=== PATIENT | female | born 2005 | race Caucasian/White ===

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

== ENCOUNTER 2024-08-14 16:30 | Outpatient (REF) | payer SELFPAY ==
[2024-08-14 17:27] LABS: Internal QC Validated? YES +Cl - CLEAR BKGD; Pregnancy, Serum, hCG Quali. NEGATIVE Negative; Record Kit Lot#, Serum Preg. 947241
== END 2024-08-14 17:30 | disposition home or self-care (01) ==
LOC: EDREF 16:30
PROVIDERS: Obstetrics & Gynecology
DX: Z04.41 Encounter for examination and observation following alleged adult rape (principal)
CPT/HCPCS: 84703

== ENCOUNTER 2025-01-27 22:51 | Emergency (ER) | payer MEDICAID, SELFPAY ==
[2025-01-27 22:51] VITALS: BP 129/90; PULSE 100; RESP 18; TEMP 36.6; O2SAT 99; BMI 21.7
--- NOTE | 2025-01-27 23:05 | ED.VIS.GI ---
HPI HPI - GI History of Present Illness Chief Complaint: Abd Pain Detail of Chief Complaint: Abdominal pain Informant: patient Narrative Narrative: Patient presents with 3-day history of abdominal pain. She is relatively continuous and left-sided. She describes a burning sensation. Feels like its mostly lower abdomen. She has had some intermittent dysuria. She has history of PCOS but this feels different than ovary pain. Denies fever. Denies blood in her stool or black tarry stool. Seen a few weeks ago in [facility] and diagnosed with a left ovarian cyst that was ruptured. Last menstrual period was 6 days ago on 01-21. No prior abdominal surgeries. Patient denies fevers. [facility] Medical History (Updated 01/28/25 @ 01:[address] Beck Fuller, DO) Physical exam, pre-employment PCOS (polycystic ovarian syndrome) Home Medications ?Medication ?Instructions ?Recorded ?Last Taken ?Type drospirenone 3 mg-ethinyl 1 tab PO QDAY 10/11/24 Unknown History estradiol 0.02 mg tablet sertraline 50 mg tablet 50 mg PO QDAY 01/27/25 Unknown History dicyclomine 10 mg capsule 20 mg (2 x 10 mg) PO TIDAC #20 01/28/25 Unknown Rx CAPSULES Allergy/AdvReac Type Severity Reaction Status Date / Time No Known Allergies Allergy Verified 01/27/25 22:52 Surgical History no surgical history Social History (Updated 10/11/24 @ 11:08 by Estefany Stewart) adopted: Yes Smoking Status: Never smoker Electronic Cigarette Use: with nicotine alcohol intake: current alcohol intake frequency: a few times a month substance use type: does not use ROS ROS ED Review of Systems ROS Unobtainable: other Constitutional Constitutional ED: Reports lethargy; Denies chills, fever(s), sweats or weight loss Eyes Eyes: Denies blurry vision, change in vision or diplopia ENT ENT ED: Denies rhinorrhea or sore throat Cardiovascular Cardiovascular: Denies chest pain, orthopnea or racing heartbeat Respiratory/Chest Respiratory/Chest: Denies cough, dyspnea, dyspnea on exertion, orthopnea or sputum Gastrointestinal Gastrointestinal: Reports abdominal pain; Denies diarrhea, nausea or vomiting Genitourinary Genitourinary ED: Denies dysuria, hematuria or urinary frequency Musculoskeletal Musculoskeletal: Denies arthralgias, back pain, myalgias or neck pain Integumentary Denies abscess, Abrasions or rash Neurologic Neurologic: Denies headache(s) or weakness Psychiatric Psychiatric: Denies anxiety, depression or suicidal thoughts Endocrine Endocrinology: Denies polydipsia, polyphagia or polyuria Hematologic/Lymphatic Hematologic/Lymphatic: Denies easy bleeding, easy bruising or lymphadenopathy Allergic/Immunologic Allergic/Immunologic ED: Denies mouth swelling, tongue swelling or urticaria EXAM Physical Exam Const Vital Signs: 01/27/25 22:51 Temperature 97.8 F Temperature Source Oral Pulse Rate 100 Respiratory Rate 18 Blood Pressure 129/90 H Blood Pressure Mean 103 Pulse Ox 99 Oxygen Delivery Method Room Air Positive well nourished and well developed General Appearance ED: well developed and NAD HEENT Reports TM's clear and moist mucous membranes normocephalic and atraumatic; Negative for trauma or tenderness Tympanic Membrane ED: Yes TM's clear Eyes PERRL and EOMs intact bilaterally General Eye ED: Negative for pale conjunctiva or scleral icterus Neck no lymphadenopathy, supple and no JVD General: Negative for tenderness Chest Wall inspection of chest normal and palpation of chest normal Chest: Negative for tenderness Resp normal respiratory effort and clear to auscultation bilaterally Effort and Inspection: Negative for respiratory distress or pain with movement Auscultation: Negative for rhonchi, wheezes or diminished lung sounds Cardio regular rate, regular rhythm, S1 normal heart sound, S2 normal heart sound and no murmurs Peripheral Pulses: pulses 2+ throughout GI normal to inspection, nondistended, normoactive bowel sounds, soft to palpation, non-distended and no masses GI Narrative: Tenderness palpation over the left upper quadrant as well as left lower quadrant with some guarding. There is no rebound, rigidity, or peritoneal signs. No mass palpated. Back/Spine no CVA tenderness and no thoracic nor lumbar tenderness Extremity normal to inspection General Extremety ED: Negative for edema General Extremity: Negative for edema Neuro oriented x3, CN's II-XII intact bilaterally, no sensory deficits noted and gait normal Sensorium / Orientation: awake, alert, oriented to person, oriented to place and oriented to time Motor Exam: strength 5/5 throughout and strength abnormal Psych mental status grossly normal Skin no rashes or lesions noted and no wounds MDM MDM MDM Narrative Medical decision making narrative: Patient presents with left-sided abdominal pain for the last 3 days. Patient history of PCOS. She has had intermittent episodes of dysuria as well. IV line established. CBC with differential obtained showed white count 12.0 with hemoglobin 14 and platelet count of 425. Chemistries unremarkable. LFTs were normal. Lipase normal. hCG was negative. Urinalysis without signs of infection. CT scan of the abdomen pelvis showed large amount of stool throughout the colon and no other acute abdominal process. Patient states that she has been having bowel movements and she had 1 yesterday that was small. Recommended MiraLAX [id number]. Will also write for Bentyl as needed for cramping. Advised return if worsening pain, fever, vomiting, or condition worsen anyway. Lab Data Attestation: I reviewed the patient's lab results. Labs: Laboratory Results - last 24 hr 01/27/25 01/27/25 23:15 23:25 WBC 12.0 H RBC 4.48 Hgb 14.1 Hct 40.7 MCV 90.8 MCH 31.5 MCHC 34.6 RDW Std Deviation 40.7 RDW Coeff of Lakesha 12.4 Plt Count 425 MPV 9.5 Immature Gran % (Auto) 0.500 Neut % (Auto) 72.8 H Lymph % (Auto) 18.5 L Webb % (Auto) 7.0 Eos % (Auto) 0.5 Baso % (Auto) 0.7 Absolute Neuts (auto) 8.8 H Absolute Lymphs (auto) 2.23 Nucleated RBC % 0 Sodium 137 Potassium 3.7 Chloride 102 Carbon Dioxide 23.3 Anion Gap 12 BUN 13 Creatinine 0.83 Estim Creat Clear Calc 85.51 Est GFR (MDRD) Non-Af 104 BUN/Creatinine Ratio 15.2 Glucose 97 Lactic Acid < 1.0 Calcium 9.0 Total Bilirubin 0.31 AST 18 ALT < 5 Alkaline Phosphatase 64 Total Protein 6.9 Albumin 4.2 Globulin 2.8 Albumin/Globulin Ratio 1.5 Lipase 42 Serum , Qual NEGATIVE Urine Color Yellow Urine Clarity Clear Urine pH 6.0 Ur Specific [place] 1.015 Urine Protein 30 H Urine Glucose (UA) Normal Urine Ketones 5 H Urine Occult Blood 10 H Urine Nitrite Negative Urine Bilirubin Negative Urine Urobilinogen Normal Ur Leukocyte Esterase 25 H Urine RBC 0-5 SEEN Urine WBC 0-5 SEEN Ur Squamous Epith Cells 0-5 SEEN Urine Bacteria 0 SEEN Urine Mucus 0 SEEN Radiography Diagnostic Testing: Clinical Impression(s) from Imaging Studies Abdomen/Pelvis CT 01/28/25 00:00 IMPRESSION: Large amount of stool throughout the colon. No other acute abdominal or pelvic process is identified on this limited noncontrast study. Reading Location: [facility] Discharge Plan Triage Chief Complaint: Abd Pain ED Provider: Beck Fuller Dx/Rx/DC Orders Clinical Impression: Abdominal pain, Constipation Instructions: ED Abdominal Pain Unkn Cause Fem, ED Constipation (Adult) Prescriptions: New dicyclomine 10 mg capsule 20 mg PO TIDAC Qty: 20 0RF No Action drospirenone-ethinyl estradiol 3-0.02 mg tablet 1 tab PO QDAY sertraline 50 mg tablet 50 mg PO QDAY Primary Care Provider: Care Physician,No Primary Referrals: Care Physician,No Primary [Primary Care Provider, Medical] Activity Restrictions/Additional Instructions: You may try [id number] MiraLAX daily for the next 2 weeks. Print Language: Malay Disposition Disposition: Home, Self Care
--- OUTSIDE RECORDS SUMMARY | 2025-01-27 23:19 | XMS RPT_ITS | CCD ---
Author Organization [facility] Inform ion Partnership [facility] Care Team Providers Care Log Deckman Name Role Phone REFERRED, SELF Referring Unavailable MIRELLA PISANO Attending Unavailable MIRELLA PISANO Primary Care Unavailable Unavailable Primary Care Provider Unavailvero e Pcp, No Primary Care Provider RONA Hernandez Attending Provider Unavailable Primary Care Provider UnavailGULSHAN Weems Attending Unavailable CRISTINA, MIRELLA Referring Unavailable MIRELLA EVANS Attending Unavailable CRISTINA, MIRELLA Referring Unavailable MIRELLA EVANS Attending Unavailable Taylor Garg Attending Unavailable Nurse, SANMoriah Primary Care Unavailable Taylor Garg Attending Unavailable Nurse, SANMoriah Primary Care Unavailable Nurse, SANE Primary Care Unavailable Nurse, SANMoriah Attending Unavailable BLANCA MARTINES Primary Care Unavailable ELIGIO HOWARD Attending Unavailable GULSHAN RODGERS Attending UnavailGULSHAN Whatley Referring UnavailBLANCA Vance MD Primary Care Provider ELIGIO HOWARD MD Emergency Provider [phone] Medications Current Medications Medication Drug Class(es) Dates Sig (Normalized) Sig (Original) drospirenone / Ethinyl Estradiol (5 sources) Progestin, Estrogen Start: 07-26-2024 take 1 tablet by mouth once daily Drospirenone-Ethin yl Estradiol (CRISTELA, ,) 3-0.02 mg per tablet Indications: PCOS (polycystic ovarian syndrome) Take 1 tablet by mouth once daily. 84 tablet 3 07/26/2024 Active Etonogestrel (Nexplanon) 68 mg implant (1 source) Start: 09-11-2022 Etonogestrel (Nexplanon) 68 mg implant Active 1 IMPLANT subdermal ONCE Lela 14th, 2023 12:00am as a single dose oseltamivir 75 mg oral capsule (1 source) Neuraminidase Inhibitor Start: 03-29-2024 End: 04-03-2024 take 1 capsule by mouth twice daily oseltamivir (TAMIFLU) 75 mg capsule Take 1 capsule by mouth two times a day for 5 days. 10 capsule 03/29/2024 04/03/2024 Active prazosin 1 mg oral capsule (1 source) alpha-Adrenergic Jacquelin Start: 09-14-2021 take 1 capsule by mouth once daily at bedtime prazosin 1 mg capsule (Minipress) Take 1 capsule by mouth every night at bedtime. 30 capsule 0 09/14/2021 Active sertraline 50 mg oral tablet (15 sources) Serotonin Reuptake Inhibitor Start: 09-14-2021 End: 03-12-2024 take 1 tablet by mouth once daily sertraline 50 mg tablet (Zoloft) Take 1 tablet by mouth once daily for 30 doses. 30 tablet 0 09/14/2021 Active End: 03-12-2024 sertraline (ZOLOFT) 25 mg ta blet Take 25 mg by mouth once daily. Take with 50mg to make 75mg 03/12/2024 Discontinued Comment on above: Take 25 mg by mouth once daily. Take with 50mg to make 75mg Take 50 mg by mouth once daily. Take with 25mg to make 75mg. Completed/Discontinued Medications Medication Drug Class(es) Dates Sig (Normalized) Sig (Original) benzonatate 100 mg oral capsule (1 source) Non-narcotic Antitussive Start: 07-19-2024 End: 07-26-2024 take 1 capsule by mouth every eight hours as needed benzonatate (TESSALON PERLE) 100 mg capsule Take 1 capsule by mouth three times a day as needed for cough for up to 7 days. 21 capsule 07/19/2024 07/26/2024 Discontinued cetirizine hydrochloride 10 mg oral tablet (1 source) Histamine-1 Receptor Antagonist Start: 07-19-2024 End: 07-26-2024 take 1 tablet by mouth once daily cetirizine (ZYRTEC) 10 mg tablet Take 1 tablet by mouth once daily. 30 tablet 07/19/2024 07/26/2024 Discontinued Ethinyl Estradiol / Levonorgestrel (4 sources) Progestin, Estrogen, Progestin-containi ng Intrauterine Device Start: 07-24-2022 End: 03-12-2024 take 1 tablet by mouth once daily Levonorgestrel-Eth inyl Estrad (AVIANE) 0.1mg - 20mcg per tablet Take 1 tablet by mouth once daily for 28 days. 28 tablet 07/24/2022 03/12/2024 Discontinued Start: 07-24-2022 take 1 tablet by nohelia th once daily Levonorgestrel-Ethinyl Estrad (AVIANE) 0.1mg - 20mcg per tablet Take 1 tablet by mouth once daily for 28 days. 28 tablet 0 07/24/2022 Active Comment on above: Take 1 tablet by nohelia th once daily for 28 days. etonogestrel 68 mg drug implant (7 sources) Progestin Start : 04-28 End: 04-27 etonogestrel (NEXPLANON) subdermal implant 68 mg Indications: Insertion of implantable subdermal contraceptive 1 Each by SUBDERMAL route as directed. 1 Each 04/28/2022 03/12/2024 Discontinued Comment on above: 1 Each by SUBDERMAL route as directed. fluticasone propionate 0.05 mg/actuat metered dose nasal spray (1 source) Corticosteroid Start : 07-19 End: 07-26 take 2 spray(s) by mouth once daily fluticasone (FLONASE) 50 mcg/actuation nasal spray Use 2 sprays in each nostril once daily. Rinse mouth after use. 11.1 mL 07/19/2024 07/26/2024 Discontinued medroxyPROGESTERone acetate 10 mg oral tablet (5 sources) Progestin Start : 05-20 End: 07-26 take 1 tablet by mouth once daily medroxyPROGESTERone (PROVERA) 10 mg tablet Take 1 tablet by mouth once daily for 10 days. 10 tablet 05/21/2023 07/26/2024 Discontinued Comment on above: Take 1 tablet by nohelia th once daily for 10 days. polymyxin b [id number] unt/ml / trimethoprim 1 mg/ml ophthalmic solution (1 source) Dihydrofolate Reductase Inhibitor Antibacterial, Polymyxin-class Antibacterial Start : 07-19 End: 07-26 take 1 drop(s) into the eye(s) four times daily polymyxin B-trimethoprim (POLYTRIM) 10,000 unit- 1 mg/mL ophthalmic solution Use 1 drop in the right eye four times daily. 10 mL 07/19/2024 07/26/2024 Discontinued Problems Problem Classification Problem Date Documented Date Episodic/Chronic Abdominal pain (5 sources) Pain in female pelvis; Translations: [Pelvic and perineal pain] Onset: 07-26-2024 05-21-2023 Episodic Anxiety disorders (3 sources) Posttraumatic stress disorder; Translations: [Post-traumatic stress disorder, unspecified] Onset: 07-27-2021 07-29-2021 Chronic Chronic obstructive pulmonary disease and bronchiectasis (1 source) Bronchitis, not specified as acute or chronic; Translations: [Sinobronchitis] Onset: 07-19-2024 Episodic Contraceptive and procreative management (6 sources) Patient encounter status; Translations: [Encounter for other contraceptive management] Episodic Genitourinary symptoms and ill-defined conditions (1 source) Scalding pain on urination ; Translations: [Dysuria] 03-12-2024 Episodic Immunizations and screening for infectious disease (1 source) Encounter for screening for infections with a predominantly sexual mode of transmission; Translations: [Screening for STD (sexually transmitted disease)] Onset: 09-13-2024 Episodic Menstrual disorders (4 sources) Spasmodic dysmenorrhea; 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] Onset: 09-13-2024 05-21-2023 Chronic Mood disorders (1 source) Major depressive disorder, recurrent, moderate; Translations: [Major depressive disorder, recurrent, moderate] Onset: 10-11-2024 Chronic Other endocrine disorders (1 source) Polycystic ovary syndrome; Translations: [Polycystic ovarian syndrome] 07-26-2024 Chronic Other endocrine disorders (1 source) Polycystic ovarian syndrome; Translations: [PCOS (polycystic ovarian syndrome)] Onset: 07-26-2024 Chronic Other female genital disorders (1 source) Abnormal uterine bleeding; Translations: [Abnormal uterine and vaginal bleeding, unspecified] 06-03-2023 Chronic Other skin disorders (1 source) Hirsutism; Translations: [Hirsutism] 07-26-2024 Episodic Other skin disorders (1 source) Hirsutism; Translations: [Hirsutism] Onset: 07-26-2024 Episodic Other upper respiratory infections (1 source) Chronic sinusitis, unspecified; Translations: [Sinobronchitis] Onset: 07-19-2024 Chronic Other upper respiratory infections (2 sources) Sore throat symptom; Translations: [Acute pharyngitis, unspecified] 03-28-2024 Episodic Ovarian cyst (1 source) Cyst of ovary; Translations: [Unspecified ovarian cyst, unspecified side] 01-08-2025 Episodic Sprains and strains (2 sources) Strain of muscle and/or tendon of lower leg; Translations: [Strain of unspecified muscle and tendon at ankle and foot level, left foot, initial encounter] 09-11-2022 Episodic Results Test Name Value Interpretation Reference Range Facility CT ABD/PELVIS Won 01-08-2025 CT ABD/PELVIS W EXAMINATION: CT OF THE ABDOMEN AND PELVIS WITH CONTRAST 01/07/2025 11:07 pm TECHNIQUE: CT of the abdomen and pelvis was performed with the administration of intravenous contrast. Multiplanar reformatted images are provided for review. Automated exposure control, iterative reconstruction, and/or weight based adjustment of the mA/kV was utilized to reduce the radiation dose to as low as reasonably achievable. COMPARISON: None. HISTORY: ORDERING SYSTEM PROVIDED HISTORY: abdominal pain FINDINGS: Lower Chest: Visualized portion of the lower chest demonstrates no acute abnormality. Organs: The liver, gallbladder, spleen, pancreas, adrenals, and kidneys are unremarkable. GI/Bowel: There is no evidence of bowel obstruction. No evidence of abnormal bowel wall thickening or distension. The appendix is normal. Pelvis: The urinary bladder is partially filled. The uterus is unremarkable. There is a 4.0 cm left adnexal cyst. Peritoneum/Retroperitoneum : No evidence of ascites or free air. No evidence of lymphadenopathy. Aorta is normal in caliber. Bones/Soft Tissues: No acute abnormality of the visualized osseous structures. No focal soft tissue abnormality. IMPRESSION: 1. No acute intra-abdominal or pelvic abnormality. 2. 4.0 cm left adnexal cyst. No imaging follow-up is warranted. Normal [facility] EMERGENCY DEPARTMENTon 01-08 EMERGENCY DEPARTMENT [place] [id number] HEALTH INFORMATION MANAGEMENT EMERGENCY DEPARTMENT : [phone] Signed Patient: DIALLO SHERMAN Acct:[id number] MRUN: [id number] : 2005 Sex: F Loc: ED ADM Date: Room/Bed: DISC Date: History of Present Illness - General Chief Complaint: Pain Stated Complaint: SHARP PAIN IN LOWER STOMACH AND BACK Symptom onset: today HPI: pt arrives today with complaints of having left lower abd that radiates to her back, pt has hx of pcos Time Seen by Provider: 01/07/25 21:39 Source: Patient Mode of Transport: Ambulatory - History of Present Illness MD Complaint: abdominal pain Onset/Timin -: days(s) Location: LLQ Radiation: back Migration to: no migration Severity: mild, moderate Quality: aching, sharp Consistency: constant Improves With: nothing Worsens With: nothing Associated Symptoms: nausea. denies: vomiting, diarrhea, fever, dysuria - Related Data Allergies Allergy/AdvReac Type Severity Reaction Status Date / Time No Known Allergies Allergy Unverified 01/07/25 21:52 Review of System - Constitutional Constitutional: Present: Well developed, Well nourished, Non-toxic - Nose,Throat,Mouth Nose (ROS): Absent: pain Throat: Absent: pain, swelling, discharge Mouth: Absent: pain, swelling - Respiratory Respiratory: Absent: cough, short of breath, wheezing - CV Cardiology: Absent: chest pain, edema - GI Gastrointestinal/Abdominal : Present: abdominal pain, nausea. Absent: diarrhea, vomiting - Genitourinary Symptoms: Absent: dysuria - Neuro Neurological: Absent: headache, weakness - Muskuloskeletal Musculoskeletal: Absent: back pain, joint pain, joint swelling - Integumentary Skin: Absent: lesions, rash - Allergic/Immunologic Immunological/Allergic: Present: no symptoms reported - Hematologic Hematologic/Lymphatic: Absent: easy bleeding, easy bruising, swollen glands - Endocrine Endocrine: Present: no symptoms reported - Psychiatric Psychiatric: Present: Normal Affect, Normal Mood. Absent: Depressed - All Others/Exceptions All Other Systems: Reviewed and Negative Except Where Noted in Documentation ED PMH/Social HX/Family HX - Respiratory Hx Respiratory Disorders: No - Cardiovascular Hx Cardiac Disorders: No - Neurological Hx Neurological Disorder: Yes PMH--Neurological: Migraines - Endocrine Hx Endocrine Disorders: No - Gastrointestinal Hx Gastrointestinal Disorders: No - Genitourinary Hx Genitourinary Disorders: No - Musculoskeletal Hx Musculoskeletal Disorders: No - Reproductive ?: No Last Pap Smear: pcos - Psychological Hx Psychosocial Problems: Yes PMH--Psychological Treatments: Anxiety, Depression - HEENT Hx Ear, Nose Throat Disorders: No - Cancer Hx Cancer: No - Social History Marital Status: Single Lives with: Alone Able to Read: Yes Able to Write: Yes Smoking Status: Smoking Status Unknown Hx Chewing Tobacco Use: No Alcohol Use: Occasionally Any recreational drug use reported?: No Feels Threatened In Home Environment: No Feels Threatened In a Relationship: No - [place]/Gender ID What is your current Gender Identity? Choose all that Apply: Female General Exam - General Limitations: Complains of: no limitations Constitutional: Present: no symptoms reported - Head Head exam: Present: atraumatic, normocephalic, normal inspection - Eye Eye exam: Present: normal apperance - ENT ENT exam: Present: normal orophraynx, mucous membranes moist - Neck Neck exam: Present: full ROM, Supple. Absent: tenderness - Respiratory Respiratory exam: Present: lungs clear and equal bilaterally. Absent: respiratory distress - Cardiovascular Cardiovascular Exam: Present: regular rate, normal rhythm - GI/Abdominal GI/Abdominal exam: Present: soft, tenderness (mild llq and left pelvic). Absent: guarding, rebound, rigid - Extremities Exam Extremities exam: Present: normal inspection, neurovascularly intact, full ROM - Back Exam Back exam: Present: normal inspection - Neurological Exam Neurological exam: Present: alert, oriented X3 - Psychiatric Psychiatric exam: Present: normal affect - Skin Skin Color: Present: Normal Skin exam: Present: warm, dry, intact - Vital Signs Vital Signs 01/07/25 01/07/25 01/07/25 21:41 21:48 21:50 Temperature 97.2 F L Pulse Rate 97 102 H Pulse Rate [ 91 Pulse Ox] Respiratory 20 Rate Blood Pressure Blood Pressure 136/79 [Left Arm] O2 Sat by Pulse 99 98 99 Oximetry(%) 01/07/25 01/07/25 01/07/25 21:53 22:00 23:06 Temperature Pulse Rate 90 90 Pulse Rate [ (more content not included)... Normal [facility] Absolute immature granulocyt e countOrdered By: ELIGIO HOWARD on 01-07-2025 Immature granulocytes (Bld) [#/Vol] 0.03 kL 0.00-0.10 [facility] Absolute lymphocyte countOrd ered By: ELIGIO HOWARD on 01-07-2025 Lymphocytes Auto (Unsp spec) [#/Vol] 1.80 kL 1.30-2.90 [facility] Basic Metabolic PanelOrdered By: ELIGIO HOWARD on 01-07-2025 Anion gap [Moles/Vol] 13.3 mmol/L Normal 8.0-16.0 [facility] Comment on above: Performed By: #### B MP #### [facility] [address] [place] [address] Chloride [Moles/Vol] 106 mmol/L Normal 94-110 [facility] Comment on above: Performed By: #### B MP #### [facility] [address] [place] [address] CO2 [Moles/Vol] 26 mmol/L Normal 21-34 [facility] Comment on above: Performed By: #### B MP #### [facility] [address] [place] [address] Creatinine [Mass/Vol] 0.80 mg/dL Normal 0.51-0.95 [facility] Comment on above: Performed By: #### B MP #### [facility] [address] [place] [address] Glucose [Mass/Vol] 94 mg/dL Normal 65-100 [facility] Comment on above: Performed By: #### B MP #### [facility] [address] [place] [address] Potassium [Moles/Vol] 4.3 mmol/L Normal 3.3-5.1 [facility] Comment on above: Performed By: #### B MP #### [facility] [address] [place] [address] Sodium [Moles/Vol] 141 mmol/L Normal 132-145 [facility] Comment on above: Performed By: #### B MP #### [place] [id number] [place] [address] Urea nitrogen [Mass/Vol] 11.8 mg/dL Normal 3.2-26.9 [facility] Comment on above: Performed By: #### B MP #### [facility] [address] [place] [address] Urea nitrogen/Creatinine [Mass ratio] 15 mg/mg Normal 6-20 [facility] Comment on above: Performed By: #### B MP #### [place] [id number] [place] [address] Basic Metabolic Panelon 11-0 9-2024 Calcium [Mass/Vol] 9.2 mg/dL Normal 8.2-10.0 [facility] Comment on above: Performed By: #### B MP #### [place] [id number] [place] [address] EGFR Other Races >60 Normal >60 [facility] Comment on above: Performed By: #### B MP #### [facility] [address] [place] [address] GFR/1.73 sq M.predicted among blacks MDRD (S/P/Bld) [Vol rate/Area] mL/min/{1.73_m2} Normal >60 [facility] Comment on above: Result Comment: [employer] Kidney Disease less than 60 mL/min/1.73 m2 Kidney Failure less than 15 mL/min/1.73 m2 Average estimated GFR by age: 20-29 years 116 mL/min/1.73 m2 Performed By: #### B MP #### [address] [address] Basophils Auto (Bld) [#/Vol] Ordered By: ELIGIO HOWARD on 01-07-2025 Basophils (Bld) [#/Vol] 0.04 kL 0.00-0.10 [facility] Blood absolute eosinophil co untOrdered By: ELIGIO HOWARD on 01-07-2025 Eosinophils (Bld) [#/Vol] 0.20 kL 0.00-0.20 [facility] Blood erythrocytes count (nu mber/volume)Ordered By: ELIGIO HOWARD on 01-07-2025 RBC (Bld) [#/Vol] 4.92 mL 3.83-5.19 [facility] Blood leukocytes count (numb er/volume)Ordered By: ELIGIO HOWARD on 01-07-2025 WBC (Bld) [#/Vol] 15.9 kL High 3.6-10.8 [facility] CBC w/Auto Differentialon Basophils Abs. # 0.04 K/uL Normal 0.00-0.10 [facility] Comment on above: Performed By: #### C BCS #### [address] [address] Eosinophils (Bld) [#/Vol] 0.20 10*3/uL Normal 0.00-0.20 [facility] Comment on above: Performed By: #### C BCS #### [id number] [place] [address] Eosinophils/100 WBC (Bld) 1.2 % Normal 0.9-2.9 [facility] Comment on above: Performed By: #### C BCS #### [address] [address] Imm Grans % 0.20 % Normal 0.00-1.00 [facility] Comment on above: Performed By: #### C BCS #### [facility] [address] [place] [address] Imm Grans Absolute # 0.03 K/uL Normal 0.00-0.10 [facility] Comment on above: Performed By: #### C BCS #### [place] [id number] [place] [address] Lymphocytes (Bld) [#/Vol] 1.80 10*3/uL Normal 1.30-2.90 [facility] Comment on above: Performed By: #### C BCS #### [id number] [place] [address] Monocytes (Bld) [#/Vol] 1.00 10*3/uL High 0.30-0.80 [facility] Comment on above: Performed By: #### C BCS #### [place] [place] [address] Neutrophils Abs. # 12.85 K/uL High 2.20-4.80 [facility] Comment on above: Performed By: #### C BCS #### [place] [place] [address] Neutrophils/100 WBC (Bld) 80.6 % High 43.0-65.0 [facility] Comment on above: Performed By: #### C BCS #### [id number] [place] [address] Platelets (Bld) [#/Vol] 372 10*3/uL Normal 148-402 [facility] Comment on above: Performed By: #### C BCS #### [place] [id number] [place] [address] RBC (Bld) [#/Vol] 4.92 10*6/uL Normal 3.83-5.19 [facility] Comment on above: Performed By: #### C BCS #### [place] [id number] [place] [address] WBC (Bld) [#/Vol] 15.9 10*3/uL High 3.6-10.8 [facility] Comment on above: Performed By: #### C BCS #### [place] [place] [address] CBC w/Auto DifferentialOrder ed By: ELIGIO HOWARD on 01-07-2025 Basophils/100 WBC (Bld) 0.3 % Normal 0.2-1.0 [facility] Comment on above: Performed By: #### C BCS #### [address] [address] Erythrocyte distribution width (RBC) [Ratio] 11.8 % Normal 11.5-14.5 [facility] Comment on above: Performed By: #### C BCS #### [place] [place] [address] Hematocrit (Bld) [Volume fraction] 45.6 % Normal 33.4-46.0 [facility] Comment on above: Performed By: #### C BCS #### [address] [address] Hemoglobin (Bld) [Mass/Vol] 15.6 g/dL High 11.1-13.7 [facility] Comment on above: Performed By: #### C BCS #### [address] [place] [place] [address] Lymphocytes/100 WBC (Bld) 11.4 % Low 17.0-45.5 [facility] Comment on above: Performed By: #### C BCS #### [address] [place] [address] MCH (RBC) [Entitic mass] 31.7 pg High 27.0-31.0 [facility] Comment on above: Performed By: #### C BCS #### [address] [place] [address] MCHC (RBC) [Mass/Vol] 34.2 g/dL Normal 33.0-37.0 [facility] Comment on above: Performed By: #### C BCS #### [address] [address] MCV (RBC) [Entitic vol] 92.7 fL Normal 81.0-99.0 [facility] Comment on above: Performed By: #### C BCS #### [address] [place] [address] Monocytes/100 WBC (Bld) 6.3 % Normal 5.5-11.7 [facility] Comment on above: Performed By: #### C BCS #### [address] [place] [address] Platelet mean volume (Bld) [Entitic vol] 9.5 fL Normal 7.4-10.4 [facility] Comment on above: Performed By: #### C BCS #### [address] [place] [place] [address] Calcium measurement (mass fr action)Ordered By: ELIGIO HOWARD on 01-07-2025 Calcium (Unsp spec) [Mass fraction] 9.2 mg/dL 8.2-10.0 [facility] Eosinophil count as percenta ge of total leukocytesOrdered By: ELIGIO HOWARD on 11-09-2025 Eosinophils/100 WBC (Unsp spec) 1.2 % 0.9-2.9 [facility] Glomerular filtration rate ( GFR) estimation/1.73 sq m using serum, plasma, or whole bOrdered By: ELIGIO HOWARD on 01-07-2025 GFR/1.73 sq M.predicted among blacks CKD-EPI (S/P/Bld) [Vol rate/Area] > 60 >60 [facility] Comment on above: Chronic Kidney Disea se less than 60 mL/min/1.73 [id number] Failure less than 15 mL/min/1.73 w3Greewou estimated GFR by age:20-29 years 116 mL/min/1.73 m2 GFR/1.73 sq M.predicted among non-blacks CKD-EPI (S/P/Bld) [Vol rate/Area] > 60 >60 [facility] HCG Quanton 01-07-2025 HCG Quant <1 Normal [facility] Comment on above: Result Comment: Expe cted values for Quantitative HCG Assay: Years Range Male 19-83 0-2 mIU/mL Non- female 22-87 0-6 mIU/mL Maxium level of 5,000 to 200,000 mIU/mL is reached at 10-12wks. Levels decline slowly to 1,000-50,000 during 3rd trimester.wks. Please note reference range change Effective: 03-16-03 Performed By: #### H CGQ #### [address] [address] Immature granulocytes (Bld) [#/Vol]Ordered By: ELIGIO HOWARD on 01-07-2025 Immature granulocytes/100 WBC (Bld) 0.20 % 0.00-1.00 [facility] Leukocyte esterase ur dipsti ckOrdered By: ELIGIO HOWARD on 01-07-2025 Leukocyte esterase Test strip Ql (U) Trace Abnormal Negative [facility] Monocytes Auto (Bld) [#/Vol] Ordered By: ELIGIO HOWARD on 01-07-2025 Monocytes (Bld) [#/Vol] 1.00 kL High 0.30-0.80 [facility] Neutrophils Auto (Bld) [#/Vo l]Ordered By: ELIGIO HOWARD on 01-07-2025 Neutrophils (Bld) [#/Vol] 12.85 kL High 2.20-4.80 [facility] Neutrophils seg % bldOrdered By: ELIGIO HOWARD on 01-07-2025 Segmented neutrophils/100 WBC (Bld) 80.6 % High 43.0-65.0 [facility] Platelets Auto (Bld) [#/Vol] Ordered By: ELIGIO HOWARD on 01-07-2025 Platelets (Bld) [#/Vol] 372 kL 148-402 [facility] RBC LM Ql (Urine sed)Ordered By: ELIGIO HOWARD on 01-07-2025 RBC Ql (U) 0-2 [HPF] 0 - 2 [facility] RBC Test strip (U) [#/Vol]Or dered By: ELIGIO HOWARD on 01-07-2025 RBC (U) [#/Vol] Negative Negative [facility] Serum or plasma human chorio rickey gonadotropin (hCG) measurement (units/volume)Ordered By: ELIGIO HOWARD on 01-07-2025 HCG Qn m[IU]/mL [facility] Comment on above: Expected values for Quantitative HCG Assay: Years Range Male 19-83 0-2 mIU/mL Non- female 22-87 0-6 mIU/mLMaxium level of 5,000 to 200,000 mIU/mL is reached at 10-12wks.Levels decline slowly to 1,000-50,000 during 3rd trimester.wks. Please note reference range change Effective: 03-16-03 UA w/Micrscopic-reflex cultu reOrdered By: ELIGIO HOWARD on 01-07-2025 Appearance (U) Clear Normal Clear [facility] Comment on above: Performed By: #### U AMR #### [facility] [address] [place] [address] Bilirubin Ql (U) Negative Normal Negative [facility] Comment on above: Performed By: #### U AMRC #### [facility] [address] [place] [address] Color (U) yellow Normal Yellow [facility] Comment on above: Performed By: #### U AMRC #### [id number] [place] [address] Ketones Ql (U) Negative Normal Negative [facility] Comment on above: Performed By: #### U AMRC #### [address] [place] [address] Nitrite Ql (U) Negative Normal Negative [facility] Comment on above: Performed By: #### U AMRC #### [address] [address] pH (U) 8 [pH] Normal [facility] Comment on above: Performed By: #### U AMRC #### [address] [address] Protein Ql (U) Negative Normal Negative [facility] Comment on above: Performed By: #### U AMRC #### [address] [address] Specific gravity (U) [Rel density] 1.010 Low 1.015-1.025 [facility] Comment on above: Performed By: #### U AMRC #### [address] [place] [address] UA w/Micrscopic-reflex cultu reon 01-07-2025 Bacteria TURRET LATHE MACHINIST Normal 0 - 1+ [facility] Comment on above: Performed By: #### U AMRC #### [address] [place] [address] Casts TURRET LATHE MACHINIST Normal [facility] Comment on above: Performed By: #### U AMRC #### [facility] [address] [place] [address] Casts. TURRET LATHE MACHINIST Normal [facility] Comment on above: Performed By: #### U AMRC #### [facility] [address] [place] [address] Crystals LM Nom (Urine sed) TURRET LATHE MACHINIST Normal [facility] Comment on above: Performed By: #### U AMRC #### [facility] [address] [place]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 on above: Result Comment: Ian young, presumptive Cutoff value of 10 ng/mL for Buprenorphine Cocaine Ql (U) Normal [facility] Comment on above: Result Comment: Negdino young, presumptive Cutoff value of 300 ng/mL for Cocaine Comment Normal [facility] Comment on above: Result Comment: All urine drug testing performed by this method is for screening purposes. Unconfirmed results are for medical purposes only. False positive and erroneous results can occur due to cross reactivity. Confirmation of presumptive positive results by a more specific method may be ordered as an add on if clinically warranted. Performed at [facility], [address] [place] [address] MDMA Normal [facility] Comment on above: Result Comment: Ian young, presumptive Cutoff value of 500 ng/mL for MDMA Methadone Ql (U) Normal [facility] Comment on above: Result Comment: Ian young, presumptive Cutoff value of 300 ng/mL for Methadone Methamphetamine Normal [facility] Comment on above: Result Comment: Ian young, presumptive Cutoff value of 1000 ng/mL for Methamphetamine Morphine Normal [facility] Comment on above: Result Comment: Nega hannah, presumptive Cutoff value of 300 ng/mL for Morphine Oxidants, Urine Normal [facility] Oxycodone Normal [facility] Comment on above: Result Comment: Nega tive, presumptive Cutoff value of 100 ng/mL for Oxycodone pH, Urine Normal Normal [facility] Specific [place], Urine Normal Normal [facility] THC Normal [facility] Comment on above: Result Comment: Nega tive, presumptive Cutoff value of 50 ng/mL for THC HCG, Urine Qualitativeon Beta HCG ( test) Ql (U) Normal [facility] Comment on above: Result Comment: Nega tive First morning urine is the specimen of choice for urine test. False negative results can occur when random urine specimens are tested. A serum test is recommended if results do not correlate with the patient's clinical condition. Performed at [facility], [address] [place] [address] ED Clinical Summaryon 2020 ED Clinical Summary [facility] nter [address] [place] [address], [phone] Fax: [phone] PERSON INFORMATION Name: DIALLO SHERMAN Age: 15 Years : 2005 Sex: Female Language: Iranian PCP: MD Gamez Christopher Marital Status: Single Med Service: Emergency Medicine Arrival: 12/21/2020 22:46:20 Visit Reason: Cough; cough/aspiration Acuity: 4 LOS: 000 01:40 Address: [address] [place] [phone] Diagnosis: Cough Medications Administered: Radiology Orders: Laboratory Orders: Lab and Rad: Laboratory or Other Results This Visit (last charted value for your 12/21/2020 visit) Diagnostic Radiology 12/21/2020 11:11 PM XR Chest 2 Views: XR Chest 2 Views Medications: PROVIDER INFORMATION Provider Role Assigned Unassigned LEI Brambila Douglas R ED MidLevel 12/21/2020 22:59:34 Issac Contreras ED Nurse 12/21/2020 23:00:38 Attending Physician: LEI Brambila Douglas R Admit Doc LEI Brambila Douglas R Consulting Doc VITALS INFORMATION Vital Sign Triage Latest Temp Oral 97.9 Deg F 97.9 Deg F Temp Temporal Temp Intravascular Temp Axillary Temp Rectal 02 Sat 99 % 99 % Respiratory Rate 16 br/min 16 br/min Peripheral Pulse Rate 108 bpm 108 bpm Apical Heart Rate Blood Pressure 128 mmHg / 66 mmHg 128 mmHg / 66 mmHg Allergies No Known Allergies Immunizations No Immunizations Documented This Visit DISCHARGE INFORMATION Discharge Disposition: Home or Self Care Discharge Location: Home Discharge Date and Time: 12/22/2020 00:26:00 ED Checkout Date and Time: 12/22/2020 00:26:00 DEPART REASON INCOMPLETE INFORMATION Depart Action Incomplete Reason Vital Signs and Pain Recently assessed Problems No Problems Documented Smoking Status Never (less than 100 in lifetime) PATIENT EDUCATION INFORMATION Instructions: Cough, Adult Follow up: With: Address: When: Follow up with primary care provider Within 2 to 4 days Normal [facility] ED Patient Summaryon ED Patient Summary (Inserted Image. Mirna ble to display) [facility] Emergency Department [address] [place] [address] [phone] Discharge Instructions (Patient) Name:DIALLO SHERMAN : 2005 Reason For Visit: Cough Final Diagnosis: Cough Visit Date: 12/21/2020 22:46:20 Address: [address] [place] [phone] Primary Care Provider: Name: MD Gamez Christopher Emergency Department Providers:Primary Physician: LEI Brambila Douglas R [facility] would like to thank you for allowing us to assist you with your healthcare needs. The following includes patient education materials and information regarding your injury/illness. Follow-up Instructions: You were treated today on an emergency basis; it may be giraldo to contact your primary care provider to notify them of your visit today. You may have been referred to your regular doctor or a specialist, please follow up as instructed. If your condition worsens or you can't get in to see the doctor, contact the Emergency Department. With: Address: When: Follow up with primary care provider Within 2 to 4 days Patient Education Materials: Cough, Adult Cough, Adult Coughing is a reflex that clears your throat and your airways (respiratory system). Coughing helps to heal and protect your lungs. It is normal to cough occasionally, but a cough that happens with other symptoms or lasts a long time may be a sign of a condition that needs treatment. An acute cough may only last 2?3 weeks, while a chronic cough may last 8 or more weeks. Coughing is commonly caused by: ? Infection of the respiratory systemby viruses or bacteria. ? Breathing in substances that irritate your lungs. ? Allergies. ? Asthma. ? Mucus that runs down the back of your throat (postnasal drip). ? Smoking. ? Acid backing up from the stomach into the esophagus (gastroesophageal reflux). ? Certain medicines. ? Chronic lung problems. ? Other medical conditions such as heart failure or a blood clot in the lung (pulmonary embolism). Follow these instructions at home: Medicines ? Take weyx-yht-zzsjjnn and prescription medicines only as told by your health care provider. ? Talk with your health care provider before you take a cough suppressant medicine. Lifestyle ? Avoid cigarette smoke. Do not use any products that contain nicotine or tobacco, such as cigarettes, e-cigarettes, and chewing tobacco. If you need help quitting, ask your health care provider. ? Drink enough fluid to keep your urine pale yellow. ? Avoid caffeine. ? Do not drink alcohol if your health care provider tells you not to drink. General instructions ? Pay close attention to changes in your cough. Tell your health care provider about them. ? Always cover your mouth when you cough. ? Avoid things that make you cough, such as perfume, candles, cleaning products, or campfire or tobacco smoke. ? If the air is dry, use a cool mist vaporizer or humidifier in your bedroom or your home to help loosen secretions. ? If your cough is worse at night, try to sleep in a semi-upright position. ? Rest as needed. ? Keep all follow-up visits as told by your health care provider. This is important. Contact a health care provider if you: ? Have new symptoms. ? Cough up pus. ? Have a cough that does not get better after 2?3 weeks or gets worse. ? Cannot control your cough with cough suppressant medicines and you are losing sleep. ? Have pain that gets worse or pain that is not helped with medicine. ? Have a fever. ? Have unexplained weight loss. ? Have night sweats. Get help right away if: ? You cough up blood. ? You have difficulty breathing. ? Your heartbeat is very fast. These symptoms may represent a serious problem that is an emergency. Do not wait to see if the symptoms will go away. Get medical help right away. Call your local emergency services (911 in the [place] Do not drive yourself to the hospital. Summary ? Coughing is a reflex that clears your throat and your airways. It is normal to cough occasionally, but a cough that happens with other symptoms or lasts a long time may be a sign of a condition that needs treatment. ? Take lfgd-hps-dltxqmx and prescription medicines only as told by your health care provider. ? Always cover your mouth when you cough. ? Contact a health care provider if you have new symptoms or a cough that does not get better after 2?3 weeks or gets worse. This information is not intended to replace advice given to you by your health care provider. Make sure you discuss any questions you have with your health care provider. Document Revised: 03/06/2019 Document Reviewed: 03/06/2019 [employer] Patient Education ? 2020 [employer] New Medications (more content not included)... Normal [facility] XR Chest 2 Viewson 1 XR Chest 2 Views EXAMINATION: TWO XRAY VIEWS OF THE CHEST 12/21/2020 11:11 pm COMPARISON: None. HISTORY: ORDERING SYSTEM PROVIDED HISTORY: Chest pain TECHNOLOGIST PROVIDED HISTORY: Tech Provided Reason for Exam: Aspirated lemonade approx 1999. Coughed and vomited, still feel SOB. Denies any foreign body sensation in throat. Dry cough in triage. No acute distress. Type of Encounter: Initial Acuity: acute FINDINGS: The lungs are clear. The cardiac and mediastinal contours are normal. There is no pleural effusion or pneumothorax. No acute osseous abnormality is identified. IMPRESSION: No acute cardiopulmonary abnormality. Ordering Provider: Blanca Brambila Final Dictated by: MD Calles Andrew G Dictated DT/TM: 12/21/2020 11:18 pm Signed by: MD Calles Andrew G Signed (Electronic Signature): 12/21/2020 11:18 pm Normal [facility] Vital Signs Date Time Vital Sign Value Performing Clinician Facility 01-07-2025 23:06-0500 Diastolic blood pressure 83 mm[Hg] BLANCA MARTINES MD Work Phone: [facility] 01-07-2025 23:06-0500 Heart rate 90 /min BLANCA MARTINES MD Work Phone: [facility] 01-07-2025 23:06-0500 Respiratory rate 20 /min BLANCA MARTINES MD Work Phone: [facility] 01-07-2025 23:06-0500 SaO2% (BldA) [Mass fraction] 99 % BLANCA MARTINES MD Work Phone: [facility] 01-07-2025 23:06-0500 Systolic blood pressure 127 mm[Hg] BLANCA MARTINES MD Work Phone: [facility] 01-07-2025 21:41-0500 Body height 157.48 cm BLANCA MARTINES MD Work Phone: [facility] 01-07-2025 21:41-0500 Body temperature 97.2 [degF] BLANCA MARTINES MD Work Phone: [facility] 01-07-2025 21:41-0500 Body weight 51.26 kg BLANCA MARTINES MD Work Phone: [facility] 09-13-2024 09:09-0400 Body mass index (BMI) [Ratio] 22.68 kg/m2 Mirella Evans APRN.CNP Work Phone: [facility] 09-13-2024 09:09-0400 Body weight 56.25 kg Mirella Evans APRN.CNP Work Phone: [facility] 09-13-2024 09:09-0400 Diastolic blood pressure 68 mm[Hg] Mirella Haury WORKDAY FINANCIALS CONSULTANT.AUTOMOTIVE ELECTRICIAN HELPER Work Phone: [facility] 09-13-2024 09:09-0400 Systolic blood pressure 102 mm[Hg] Mirella Haury WORKDAY FINANCIALS CONSULTANT.AUTOMOTIVE ELECTRICIAN HELPER Work Phone: [facility] 07-26-2024 08:09-0400 Body height 157.5 cm Mirella Haury WORKDAY FINANCIALS CONSULTANT.AUTOMOTIVE ELECTRICIAN HELPER Work Phone: [facility] 07-26-2024 08:09-0400 Body mass index (BMI) [Ratio] 23.23 kg/m2 Mirella Haury WORKDAY FINANCIALS CONSULTANT.AUTOMOTIVE ELECTRICIAN HELPER Work Phone: [facility] 07-26-2024 08:09-0400 Body weight 57.61 kg Mirella Haury WORKDAY FINANCIALS CONSULTANT.AUTOMOTIVE ELECTRICIAN HELPER Work Phone: [facility] 07-26-2024 08:09-0400 Diastolic blood pressure 70 mm[Hg] Mirella Haury WORKDAY FINANCIALS CONSULTANT.AUTOMOTIVE ELECTRICIAN HELPER Work Phone: [facility] 07-26-2024 08:09-0400 Systolic blood pressure 108 mm[Hg] Mirella Haury WORKDAY FINANCIALS CONSULTANT.AUTOMOTIVE ELECTRICIAN HELPER Work Phone: [facility] 03-28-2024 16:43-0500 Body mass index (BMI) [Ratio] 24.13 kg/m2 Krislyn Aberegg PA Work Phone: [facility] 03-28-2024 16:43-0500 Body temperature 102.2 [degF] Krislyn Aberegg PA Work Phone: [facility] 03-28-2024 16:43-0500 Body weight 61.8 kg Krislyn Aberegg PA Work Phone: [facility] 03-28-2024 16:43-0500 Diastolic blood pressure 68 mm[Hg] Krislyn Aberegg PA Work Phone: [facility] 03-28-2024 16:43-0500 Heart rate 142 /min Krislyn Aberegg PA Work Phone: [facility] 03-28-2024 16:43-0500 Respiratory rate 18 /min Krislyn Aberegg PA Work Phone: [facility] 03-28-2024 16:43-0500 SaO2% (BldA) [Mass fraction] 98 % Krislyn Aberegg PA Work Phone: [facility] 03-28-2024 16:43-0500 Systolic blood pressure 118 mm[Hg] Krislyn Aberegg PA Work Phone: [facility] 03-12-2024 14:27-0500 Body mass index (BMI) [Ratio] 24.53 kg/m2 Santa Hopewell WORKDAY FINANCIALS CONSULTANT.AUTOMOTIVE ELECTRICIAN HELPER Work Phone: [facility] 03-12-2024 14:27-0500 Body temperature 97.7 [degF] Santa Hopewell WORKDAY FINANCIALS CONSULTANT.AUTOMOTIVE ELECTRICIAN HELPER Work Phone: [facility] 03-12-2024 14:27-0500 Body weight 62.8 kg Santa Mary WORKDAY FINANCIALS CONSULTANT.AUTOMOTIVE ELECTRICIAN HELPER Work Phone: [facility] 03-12-2024 14:27-0500 Diastolic blood pressure 86 mm[Hg] Santa Hopewell WORKDAY FINANCIALS CONSULTANT.AUTOMOTIVE ELECTRICIAN HELPER Work Phone: [facility] 03-12-2024 14:27-0500 Heart rate 77 /min Santa Mary WORKDAY FINANCIALS CONSULTANT.AUTOMOTIVE ELECTRICIAN HELPER Work Phone: [facility] 03-12-2024 14:27-0500 Respiratory rate 18 /min Santa Hopewell WORKDAY FINANCIALS CONSULTANT.AUTOMOTIVE ELECTRICIAN HELPER Work Phone: [facility] 03-12-2024 14:27-0500 SaO2% (BldA) [Mass fraction] 100 % Santa Hopewell WORKDAY FINANCIALS CONSULTANT.AUTOMOTIVE ELECTRICIAN HELPER Work Phone: [facility] 03-12-2024 14:27-0500 Systolic blood pressure 132 mm[Hg] Santa Hopewell WORKDAY FINANCIALS CONSULTANT.AUTOMOTIVE ELECTRICIAN HELPER Work Phone: [facility] 05-21-2023 13:16-0400 Body height 160 cm Kaci Leiva MD Work Phone: [facility] 05-21-2023 13:16-0400 Body weight 61.87 kg Kaci Leiva MD Work Phone: [facility] 05-21-2023 13:16-0400 Diastolic blood pressure 72 mm[Hg] Kaci Leiva MD Work Phone: [facility] 05-21-2023 13:16-0400 Systolic blood pressure 122 mm[Hg] Kaci Leiva MD Work Phone: [facility] 12-29-2022 14:15-0400 Body weight 58.42 kg Santa Hopewell WORKDAY FINANCIALS CONSULTANT.AUTOMOTIVE ELECTRICIAN HELPER Work Phone: [facility] 12-29-2022 14:15-0400 Diastolic blood pressure 68 mm[Hg] Santa Hopewell WORKDAY FINANCIALS CONSULTANT.AUTOMOTIVE ELECTRICIAN HELPER Work Phone: [facility] 12-29-2022 14:15-0400 Systolic blood pressure 124 mm[Hg] Santa Hopewell WORKDAY FINANCIALS CONSULTANT.AUTOMOTIVE ELECTRICIAN HELPER Work Phone: [facility] 09-11-2022 17:32-0400 Body height 157.48 cm RONA Herrera PA Work Phone: [facility] 09-11-2022 17:32-0400 Body mass index (BMI) [Percentile] Per age and sex 69.7 % RONA Herrera PA Work Phone: [facility] 09-11-2022 17:32-0400 Body mass index (BMI) [Ratio] 23.3 kg/m2 PA Didier Herrera PA Work Phone: [facility] 09-11-2022 17:32-0400 Body temperature 97.8 [degF] RONA Herrera PA Work Phone: [facility] 09-11-2022 17:32-0400 Body weight 57.77 kg RONA Herrera PA Work Phone: [facility] 09-11-2022 17:32-0400 Diastolic blood pressure 78 mm[Hg] RONA Herrera PA Work Phone: [facility] 09-11-2022 17:32-0400 Heart rate 108 /min PA Didier Herrera PA Work Phone: [facility] 09-11-2022 17:32-0400 Respiratory rate 16 /min PA Didier Herrera PA Work Phone: [facility] 09-11-2022 17:32-0400 SaO2% (BldA) [Mass fraction] 98 % PA Didier Herrera PA Work Phone: [facility] 09-11-2022 17:32-0400 Systolic blood pressure 138 mm[Hg] PA Didier Herrera PA Work Phone: [facility] 04-28-2022 10:17-0500 Diastolic blood pressure 60 mm[Hg] Santa Mary WORKDAY FINANCIALS CONSULTANT.AUTOMOTIVE ELECTRICIAN HELPER Work Phone: [facility] 04-28-2022 10:17-0500 Heart rate 78 /min Santa Mary WORKDAY FINANCIALS CONSULTANT.AUTOMOTIVE ELECTRICIAN HELPER Work Phone: [facility] 04-28-2022 10:17-0500 SaO2% (BldA) [Mass fraction] 97 % Santa Mary WORKDAY FINANCIALS CONSULTANT.AUTOMOTIVE ELECTRICIAN HELPER Work Phone: [facility] 04-28-2022 10:17-0500 Systolic blood pressure 100 mm[Hg] Santa Hopewell WORKDAY FINANCIALS CONSULTANT.AUTOMOTIVE ELECTRICIAN HELPER Work Phone: [facility] 04-28-2022 10:16-0500 Body height 162.6 cm Santa Mary WORKDAY FINANCIALS CONSULTANT.AUTOMOTIVE ELECTRICIAN HELPER Work Phone: [facility] 04-28-2022 10:16-0500 Body mass index (BMI) [Percentile] Per age and sex 51.79 % Santa Hopewell WORKDAY FINANCIALS CONSULTANT.AUTOMOTIVE ELECTRICIAN HELPER Work Phone: [facility] 04-28-2022 10:16-0500 Body weight 56.7 kg Santa Hopewell WORKDAY FINANCIALS CONSULTANT.AUTOMOTIVE ELECTRICIAN HELPER Work Phone: [facility] 04-21-2022 08:22-0500 Body weight 57.42 kg Santa Hopewell WORKDAY FINANCIALS CONSULTANT.AUTOMOTIVE ELECTRICIAN HELPER Work Phone: [facility] 04-21-2022 08:22-0500 Diastolic blood pressure 62 mm[Hg] Santa Armentacalf WORKDAY FINANCIALS CONSULTANT.AUTOMOTIVE ELECTRICIAN HELPER Work Phone: [facility] 04-21-2022 08:22-0500 Systolic blood pressure 104 mm[Hg] Santa Guillenf WORKDAY FINANCIALS CONSULTANT.AUTOMOTIVE ELECTRICIAN HELPER Work Phone: [facility] Encounters Encounter Date Encounter Type Care Provider Facility Start: 01-07-2025 End: 01-08-2025 Emergency department patient visit BLANCA Allen CONRAD Facility: Start: 12-07-2024 ambulatory [facility] Facility: [facility] Start: 11-23-2024 End: 11-23-2024 ambulatory [facility] Facility: Start: 10-11-2024 End: 10-11-2024 ambulatory [facility] Facility:[facility] Start: 09-14-2024 End: 11-14-2024 Follow-up encounter Mirella Evans APRN.AUTOMOTIVE ELECTRICIAN HELPER Work Phone: OB/Gynecology Start: 09-13-2024 End: 09-13-2024 Patient encounter procedure Mirella Evans APRN.AUTOMOTIVE ELECTRICIAN HELPER Work Phone: OB/Gynecology Comment on above: Irregular menstrual cycle (Primary Dx); Screening for STD (sexually transmitted disease) Start: 09-13-2024 End: 09-13-2024 ambulatory MIRELLA EVANS Facility:[facility] Start: 09-04-2024 End: 09-04-2024 Telephone encounter Mirella Evans APRN.AUTOMOTIVE ELECTRICIAN HELPER Work Phone: OB/Gynecology Comment on above: AUB Start: 08-14-2024 End: 08-14-2024 ambulatory [facility] Facility:[facility] Start: 07-27-2024 End: 09-26-2024 Follow-up encounter Mirella Evans APRN.CNP Work Phone: OB/Gynecology Start: 07-26-2024 End: 07-26-2024 Patient encounter procedure Mirella Evans APRN.AUTOMOTIVE ELECTRICIAN HELPER Work Phone: OB/Gynecology Comment on above: PCOS (polycystic ova amarilis syndrome) (Primary Dx); Hirsutism; Screening for STD (sexually transmitted disease); Pelvic pain in female Start: 07-26-2024 End: 07-26-2024 ambulatory [facility]RELLA [facility] Facility:[facility] Start: 07-19-2024 End: 07-19-2024 [facility] Facility:[facility] Start: 03-29-2024 End: 03-29-2024 Telephone encounter Vern REA Work Phone: [facility] Comment on above: Results Start: 03-28-2024 End: 03-28-2024 Patient encounter procedure Vern REA Work Phone: [facility] Comment on above: URI, acute (Primary Dx); Sore throat Start: 03-28-2024 End: 03-28-2024 [facility] Facility:[facility] Start: 03-12-2024 End: 03-12-2024 [facility] Facility:[facility] Start: 03-12-2024 End: 03-12-2024 Patient encounter procedure Santa Hernandez APRN.CNP Work Phone: [facility] Comment on above: Burning with urinati on (Primary Dx) Start: 06-01-2023 End: 06-01-2023 Patient encounter procedure Gem Technician [facility] Work Phone: OB/Gynecology Comment on above: Abnormal uterine ble eding (AUB) (Primary Dx); Pelvic pain in female; Primary dysmenorrhea Start: 05-21-2023 End: 05-21-2023 Patient encounter status Kaci Leiva MD Work Phone: [facility] Start: 05-21-2023 End: 05-21-2023 Periodic preventive med est patient 18-39 yrs Kaci Leiva MD Work Phone: OB/Gynecology Comment on above: Encounter for gyneco logical examination (general) (routine) without abnormal findings (Primary Dx); Pelvic pain in female; Primary dysmenorrhea Start: 12-29-2022 End: 12-29-2022 Patient encounter procedure Santa Hernandez WORKDAY FINANCIALS CONSULTANT.AUTOMOTIVE ELECTRICIAN HELPER Work Phone: OB/Gynecology Comment on above: Encounter for Nexpla non removal (Primary Dx) Start: 12-08-2022 Telephone encounter Santa mancini WORKDAY FINANCIALS CONSULTANT.AUTOMOTIVE ELECTRICIAN HELPER Work Phone: [facility] [place] Comment on above: Orders Start: 09-11-2022 End: 09-11-2022 ambulatory RONA REA Work Phone: [facility] Work Phone: Start: 09-11-2022 End: 09-11-2022 Patient encounter procedure RONA REA Work Phone: [facility] Work Phone: Start: 07-07-2022 Documentation procedure Gilda Castellanos MD Work Phone: [facility] Comment on above: Case closure letter sent to family Due to no provider visit in over Start: 04-28-2022 End: 04-28-2022 Patient encounter procedure Santa Hernandez WORKDAY FINANCIALS CONSULTANT.AUTOMOTIVE ELECTRICIAN HELPER Work Phone: OB/Gynecology Comment on above: Insertion of implant able subdermal contraceptive (Primary Dx) Start: 04-21-2022 End: 04-21-2022 Patient encounter procedure Santa Hernandez WORKDAY FINANCIALS CONSULTANT.AUTOMOTIVE ELECTRICIAN HELPER Work Phone: OB/Gynecology Comment on above: Encounter for other contraceptive management (Primary Dx) Start: 11-19-2021 End: 11-19-2021 ambulatory SELF REFERRED [facility] Procedures Date Procedure Procedure Detail Performing Clinician Start: 01-07-2025 Computed tomography of abdomen and pelvis with contrast BLANCA MARTINES MD Work Phone: Start: 09-13-2024 UA DIP,URINE HCG (POC) Mirella Evans WORKDAY FINANCIALS CONSULTANT.AUTOMOTIVE ELECTRICIAN HELPER Work Phone: Start: 03-28-2024 STREP A MOLECULAR (POC) Etta Wells WORKDAY FINANCIALS CONSULTANT.AUTOMOTIVE ELECTRICIAN HELPER Work Phone: Start: 03-12-2024 Urnls dip stick/tabl et rgnt auto w/o microscopy Santa Hopewell WORKDAY FINANCIALS CONSULTANT.JACEK Work Phone: Start: 06-01-2023 Us pelvic nonobstetr ic real-time image complete Kaci Leiva MD Work Phone: Start: 09-11-2022 Radiography of ankle PA Didier REA Work Phone: Start: 04-28-2022 Urine test visual color cmprsn meths Santa Hernandez APRN.AUTOMOTIVE ELECTRICIAN HELPER Work Phone: Plan of Treatment Date Care Activity Detail Author Start: 09-13-2025 GC (Gonorrhea) Scree hermes (18-24) GC (Gonorrhea) Screening (18-) [facility] Start: 09-13-2025 Screening for Chlamy glen trachomatis Chlamydia Screening () [facility] Start: 07-27-2025 End: 07-27-2025 Patient encounter procedure 07/27/2025 7:15 AM EDT Office Visit OB/Gynecology [address] [place] [id number] Mirella Evans APRN.AUTOMOTIVE ELECTRICIAN HELPER [address] [place] [id number] Annual OB/Gynecology Comment on above: Annual Start: 07-26-2025 GC (Gonorrhea) Scree hermes (18-24) GC (Gonorrhea) Screening () [facility] Start: 07-26-2025 Screening for Chlamy glen trachomatis Chlamydia Screening () [facility] Start: 10-30-2024 Influenza vaccination [facility] Start: 10-26-2024 End: 10-26-2024 Patient encounter procedure 10/26/2024 7:15 AM EDT Office Visit OB/Gynecology [address] [place] [id number] Mirella Evans APRN.AUTOMOTIVE ELECTRICIAN HELPER [address] [place] [address] 3 Month Follow up OB/Gynecology Comment on above: 3 Month Follow up Start: 09-13-2024 End: 12-13-2024 Hepatitis B virus surface Ag [Presence] in Serum [facility] Comment on above: Expected: 09/13/2024 , Expires: 12/13/2024 Start: 09-13-2024 End: 12-13-2024 Hepatitis C virus Ab [Presence] in Serum [facility] Comment on above: Expected: 09/13/2024 , Expires: 12/13/2024 Start: 09-13-2024 End: 12-13-2024 HIV 1+2 Ab [Presence] in Serum or Plasma by Immunoassay [facility] Comment on above: Expected: 09/13/2024 , Expires: 12/13/2024 Start: 09-13-2024 End: 12-13-2024 SYPHILIS TREPONEMAL W/REFLEX [facility] Work Phone: Comment on above: Expected: 09/13/2024 , Expires: 12/13/2024 Start: 09-13-2024 End: 09-13-2024 Patient encounter procedure 09/13/2024 9:15 AM EDT Office Visit OB/Gynecology [address] [place] [address] Mirella Evans APRN.AUTOMOTIVE ELECTRICIAN HELPER [address] [place] [address] [facility] OB/Gynecology Comment on above: AUB Start: 07-26-2024 End: 10-25-2024 17-Hydroxyprogesterone [Mass/volume] in Serum or Plasma [facility] Comment on above: Expected: 07/26/2024 , Expires: 10/25/2024 Start: 07-26-2024 End: 10-25-2024 25-hydroxyvitamin D3 [Mass/volume] in Serum or Plasma [facility] Comment on above: Expected: 07/26/2024 , Expires: 10/25/2024 Start: 07-26-2024 End: 10-25-2024 Choriogonadotropin.beta subunit [Units/volume] in Serum or Plasma HCG QUANTITATIVE Lab Routine PCOS (polycystic ovarian syndrome) Expected: 07/26/2024, Expires: 10/25/2024 [facility] Comment on above: Expected: 07/26/2024 , Expires: 10/25/2024 Start: 07-26-2024 End: 10-25-2024 Cobalamin (Vitamin B12)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 to eat and drink. No sick contacts that she is aware of. No other complaint. PAST MEDICAL HISTORY Diagnosis Date Borderline personality disorder (HCC) Generalized anxiety disorder PTSD (post-traumatic stress disorder) PAST SURGICAL HISTORY Procedure Laterality Date NONE ALLERGIES Patient has no known allergies. MEDICATIONS medroxyPROGESTERone (PROVERA) 10 mg tablet Take 1 tablet by mouth once daily for 10 days. (Patient not taking: Reported on 03/28/2024) FAMILY HISTORY Adopted: Yes Social History Tobacco Use Smoking status: Never Passive exposure: Never Smokeless tobacco: Never Vaping Use Vaping status: Never Used Substance Use Topics Alcohol use: Never Drug use: Never Review of Systems Constitutional: Positive for chills and fever. HENT: Positive for congestion and sore throat. Negative for ear pain. Respiratory: Positive for cough. Negative for shortness of breath. Cardiovascular: Negative for chest pain. Gastrointestinal: Negative for diarrhea and vomiting. Objective BP 118/68 Pulse (!) 142 Temp (!) 39 C (102.2 F) Resp 18 Wt 61.8 kg (136 lb 3.9 oz) LMP 02/19/2024 (Exact Date) SpO2 98% BMI 24.13 kg/m Physical Exam Vitals and nursing note reviewed. Constitutional: General: She is not in acute distress. Appearance: Normal appearance. She is not toxic-appearing. HENT: Right Ear: Tympanic membrane and ear canal normal. Left Ear: Tympanic membrane and ear canal normal. Nose: Congestion present. Mouth/Throat: Mouth: Mucous membranes are moist. Pharynx: Posterior oropharyngeal erythema present. No oropharyngeal exudate. Tonsils: 2+ on the right. 2+ on the left. Eyes: Conjunctiva/sclera: Conjunctivae normal. Cardiovascular: Rate and Rhythm: Regular rhythm. Tachycardia present. Pulmonary: Effort: Pulmonary effort is normal. Breath sounds: Normal breath sounds. No wheezing, rhonchi or rales. Skin: General: Skin is warm and dry. Neurological: Mental Status: She is alert. Assessment and Plan ASSESSMENT/PLAN: 1. URI, acute - ICD9: 465.9, ICD10: J06.9 (primary diagnosis) - Discussed viral etiology and rationale for treatment. - Symptomatic treatment with prn analgesia - Supportive care with fluids and rest - COVID & INFLUENZA A/B & RSV PCR, ROUTINE -In window for Tamiflu until evening of 03/29/2024. If flu positive, please treat with Tamiflu. No history of CKD. 2. Sore throat - ICD9: 462, ICD10: J02.9 - suspect viral - Group A strep molecular testing negative - Discussed supportive care treatment with fluids, rest and analgesia. - The patient may also use warm salt water gargles, throat lozenges and/or OTC throat spray as needed. - STREP A MOLECULAR (POC) - COVID & INFLUENZA A/B & RSV PCR, ROUTINE Diagnosis and treatment plan were discussed and questions were answered to the patient's satisfaction. Pt acknowledged understanding of concepts and follow up plan. Specific signs and symptoms that would indicate the need for higher level of care were discussed in detail warranting prompt ER evaluation. RONA Simms documented in this encounter [facility] 03-28-2024 Instruction s Vern Watson PA - 03/28/2024 4:56 PM EST Rest, increase water intake Motrin or Tylenol as needed for fever or pain. Salt water gargles, chloraseptic spray or lozenges as needed for sore throat. Warm beverages, honey. Nasal saline spray as needed Cool mist humidifier at night A cold normally lasts 7-10 days. If your symptoms are lasting longer, develop fever, or worsening by that time instead of improving then return to clinic or follow up with PCP for re-evaluation. Tylenol (generic acetaminophen) 500 mg-2 tabs every 8 hrs. as needed for fever and aches Ibuprofen 600 mg (3-200mg tablets) every 6 hours -Mucinex (generic is fine) Guaifenesin 1200 mg twice daily to help with cough and to thin out mucus documented in this encounter [facility] 03-28-2024 Note HNO ID: [id number] Author: VERN WATSON PA Service: ? Author Type: Physician Journeyman Mechanic Type: Progress Notes Filed: 03/28/2024 16:59 Note Text: This note was created using [employer]. Subjective Diallo Sherman is a 19 year old female. HPI 19-year-old female presents for cough, congestion, fevers, chills, body aches, sore throat starting yesterday evening. Patient states she started getting sick with cough congestion sore throat yesterday. Today she had a fever of 102 to 103 ?F. She has not taken any Tylenol or Motrin today. She states she still has a little bit of sore throat, but that has improved. She has achiness. She denies any vomiting or diarrhea. Still able to eat and drink. No sick contacts that she is aware of. No other complaint. PAST MEDICAL HISTORY Diagnosis Date Borderline personality disorder (HCC) Generalized anxiety disorder PTSD (post-traumatic stress disorder) PAST SURGICAL HISTORY Procedure Laterality Date NONE ALLERGIES Patient has no known allergies. MEDICATIONS medroxyPROGESTERone (PROVERA) 10 mg tablet Take 1 tablet by mouth once daily for 10 days. (Patient not taking: Reported on 03/28/2024) FAMILY HISTORY Adopted: Yes Social History Tobacco Use Smoking status: Never Passive exposure: Never Smokeless tobacco: Never Vaping Use Vaping status: Never Used Substance Use Topics Alcohol use: Never Drug use: Never Review of Systems Constitutional: Positive for chills and fever. HENT: Positive for congestion and sore throat. Negative for ear pain. Respiratory: Positive for cough. Negative for shortness of breath. Cardiovascular: Negative for chest pain. Gastrointestinal: Negative for diarrhea and vomiting. Objective BP 118/68 Pulse (!) 142 Temp (!) 39 ?C (102.2 ?F) Resp 18 Wt 61.8 kg (136 lb 3.9 oz) LMP 02/19/2024 (Exact Date) SpO2 98% BMI 24.13 kg/m? Physical Exam Vitals and nursing note reviewed. Constitutional: General: She is not in acute distress. Appearance: Normal appearance. She is not toxic-appearing. HENT: Right Ear: Tympanic membrane and ear canal normal. Left Ear: Tympanic membrane and ear canal normal. Nose: Congestion present. Mouth/Throat: Mouth: Mucous membranes are moist. Pharynx: Posterior oropharyngeal erythema present. No oropharyngeal exudate. Tonsils: 2+ on the right. 2+ on the left. Eyes: Conjunctiva/sclera: Conjunctivae normal. Cardiovascular: Rate and Rhythm: Regular rhythm. Tachycardia present. Pulmonary: Effort: Pulmonary effort is normal. Breath sounds: Normal breath sounds. No wheezing, rhonchi or rales. Skin: General: Skin is warm and dry. Neurological: Mental Status: She is alert. Assessment and Plan ASSESSMENT/PLAN: 1. URI, acute - ICD9: 465.9, ICD10: J06.9 (primary diagnosis) - Discussed viral etiology and rationale for treatment. - Symptomatic treatment with prn analgesia - Supportive care with fluids and rest - COVID AND INFLUENZA A/B AND RSV PCR, ROUTINE -In window for Tamiflu until evening of 03/29/2024. If flu positive, please treat with Tamiflu. No history of CKD. 2. Sore throat - ICD9: 462, ICD10: J02.9 - suspect viral - Group A strep molecular testing negative - Discussed supportive care treatment with fluids, rest and analgesia. - The patient may also use warm salt water gargles, throat lozenges and/or OTC throat spray as needed. - STREP A MOLECULAR (POC) - COVID AND INFLUENZA A/B AND RSV PCR, ROUTINE Diagnosis and treatment plan were discussed and questions were answered to the patient's satisfaction. Pt acknowledged understanding of concepts and follow up plan. Specific signs and symptoms that would indicate the need for higher level of care were discussed in detail warranting prompt ER evaluation. RONA Simms [facility] 03-12-2024 Note HNO ID: [id number] Author: SANTA HERNANDEZ APRN.AUTOMOTIVE ELECTRICIAN HELPER Service: ? Author Type: Nurse Practitioner Type: Progress Notes Filed: 03/12/2024 14:50 Note Text: This note was created using [employer]. Ashley Sherman is a 19 year old female. HPI dysuria, frequency x 2 days. Became sexually active 2 days ago and the symptoms started after that. Review of Systems Genitourinary: Positive for dysuria and frequency. Objective BP 132/86 Pulse 77 Temp 36.5 ?C (97.7 ?F) Resp 18 Wt 62.8 kg (138 lb 7.2 oz) LMP 02/19/2024 (Exact Date) SpO2 100% BMI 24.53 kg/m? Physical Exam HENT: Head: Normocephalic. Pulmonary: Effort: Pulmonary effort is normal. Neurological: Mental Status: She is alert. Assessment and Plan ASSESSMENT/PLAN: 1. Burning with urination - ICD9: 788.1, ICD10: R30.0 acute - UA positive for trevon esterase- trace - Patient education for prevention given - UA DIP, URINE (POC) Follow up if symptoms continue, push water intake Santa Hernandez APRN.JACEK Medical Decision Making: Problems: Low: Acute, uncomplicated illness or injury Data: Unique test(s) ordered: 1 Risk: Low: Low risk from testing/treatment Medical Decision Making Level: 3 - Low [facility] 03-12-2024 History of Present illness Narrative Formatting of this note might be differe nt from the original. This note was created using [employer]. Ashley Sherman is a 19 year old female. HPI dysuria, frequency x 2 days. Became sexually active 2 days ago and the symptoms started after that. Review of Systems Genitourinary: Positive for dysuria and frequency. Objective BP 132/86 Pulse 77 Temp 36.5 C (97.7 F) Resp 18 Wt 62.8 kg (138 lb 7.2 oz) LMP 02/19/2024 (Exact Date) SpO2 100% BMI 24.53 kg/m Physical Exam HENT: Head: Normocephalic. Pulmonary: Effort: Pulmonary effort is normal. Neurological: Mental Status: She is alert. Assessment and Plan ASSESSMENT/PLAN: 1. Burning with urination - ICD9: 788.1, ICD10: R30.0 acute - UA positive for trevon esterase- trace - Patient education for prevention given - UA DIP, URINE (POC) Follow up if symptoms continue, push water intake Santa Hernandez APRN.CNP Medical Decision Making: Problems: Low: Acute, uncomplicated illness or injury Data: Unique test(s) ordered: 1 Risk: Low: Low risk from testing/treatment Medical Decision Making Level: 3 - Low documented in this encounter [facility] 05-21-2023 History of Present illness Narrative Formatting of this note is different fro m the original. Diallo is a 18 year old who presents for an annual gynecologic exam with complaints, irregular bleeding and dysmenorrhea. Presents: alone Menses: cycles randomly. Started at age 11. Did have some regular cycles until age 13 and then cycles stopped. Was in a very stressful household at the time. Continued to have cramping even though she did not have bleeding. Started on Nexplanon although she is not sure why that was chosen. Had it removed after 6 months because of cramping and no periods. Did have bleeding after removal but it has been intermittent. Still having significant cramping. Occurs randomly and can be debilitating. Will last minutes to hours. Has never been sexually active. Given the irregular cycles and her pain potential uterine anomaly. Agreeable to pelvic ultrasound Contraception: none HPV vaccine: No Last pap smear: never OB History T0 L0 SAB0 IAB0 Ectopic0 Multiple0 Live Births0 [employer] Specialty Representative History LMP: 12/21/2022, Having periods Age at Menarche: Age at First : Age at Menopause: Pharmaceutical Specialty Representative History Comments: Sexual Activity: Never; No partner data on record Contraception: No contraception data on record PAST MEDICAL HISTORY Diagnosis Date Borderline personality disorder (HCC) Generalized anxiety disorder PTSD (post-traumatic stress disorder) PAST SURGICAL HISTORY Procedure Laterality Date NONE FAMILY HISTORY Adopted: Yes SOCIAL HISTORY Social History Tobacco Use Smoking status: Never Passive exposure: Never Smokeless tobacco: Never Vaping Use Vaping Use: Never used Substance Use Topics Alcohol use: Never Drug use: Never REVIEW OF SYSTEMS Abdomen: No bloating, early satiety, indigestion, or increased flatulence. No abdominal pain, nausea, vomiting, diarrhea, or constipation. Bladder: No dysuria, gross hematuria, urinary frequency, urinary urgency, or incontinence. Breast: No breast lumps, nipple d/c, overlying skin changes, redness or skin retraction. Allergies and current medication updated:Yes EXAM: LMP 12/21/2022 GENERAL: pleasant, in no apparent distress HEENT: Normocephalic, atraumatic, mucus membranes moist, and no lesions NECK: full range of motion DERMATOLOGY: Normal and without lesions CHEST: Normal inspiratory effort ABDOMEN: Deferred PELVIC: deferred BIMANUAL: deferred NEURO: alert and oriented x3,exam grossly non-focal EXTREMITIES: normal ASSESSMENT/PLAN: 1) Health maintenance: Pap starting at the age of 20. 2) Contraception: none. Contraceptive options reviewed and information provided. 3) STD screening: Declined STD check. 4) Provera withdrawal 5) TVUS- r/o mullerian anomaly Kaci Leiva MD documented in this encounter [facility] 12-29-2022 History of Present illness Narrative Formatting of this note might be differe nt from the original. Diallo is a 17 year old who presents for Nexplanon removal for abnormal bleeding. UNIVERSAL PROTOCOL / SAFETY CHECKLIST Procedure to be Performed: Nexplanon removal Sign In: A Moment of CARE was completed. Personnel directly involved with the procedure wore the appropriate PPE (Personal Protective Equipment). Patient/Surrogate Stated/Verified: PATIENT VERIFIED(optional for EMERGENT procedures): Patient name, Date of , Relevant allergies, and The intended procedure Time Out Communication: Intended patient and procedure match the source documents. Consent documented and matches the intended procedure. Sign Out: SIGN OUT (optional for EMERGENT procedures): No specimen collected. All instruments, equipment, possible retained foreign bodies accounted for. Post-procedure follow-up management communicated and Plan of Care Visit completed when applicable. Santa Hernandez CNP TECHNIQUE: Patient placed in supine position with left arm bent at the elbow and placed over the head. Skin cleansed with betadine. 2mL of 1% lidocaine with epi injected subQ along insertion site. Scalpel used to made a 5mm stab incision superficially at distal end of Nexplanon. Device removed under sterile technique with a small hemostat. Sterile pressure dressing applied. A&P: 17 year old here for Nexplanon removal Nexplanon removed intact without difficulty. The patient was instructed to remove the dressing after 24 hours. Contraceptive plans nothing at this time Santa Hernandez APRN.JACEK documented in this encounter [facility] 12-08-2022 Telephone encounter Note Formatting of this note might be differe nt from the original. Order filed. Santa Hernandez APRN.JACEK [facility] 12-08-2022 Miscellaneo Notes Formatting of this note might be differe nt from the original. Order filed. Santa Hernandez APRN.JACEK See pended order below. Pt will then be assisted to schedule appointment to have removed. Keyla Bocanegra LPN Patient verified by name and . She is requesting an order to have her Nexplanon removed. Please review and advise. documented in this encounter [facility] 12-08-2022 Telephone encounter Note Formatting of this note might be differe nt from the original. See pended order below. Pt will then be assisted to schedule appointment to have removed. Keyla Bocanegra LPN [facility] 12-08-2022 Telephone encounter Note Formatting of this note might be differe nt from the original. Patient verified by name and . She is requesting an order to have her Nexplanon removed. Please review and advise. [facility] 07-07-2022 History of Present illness Narrative Formatting of this note might be differe nt from the original. Case closure letter sent to family Due to no provider visit in over 11 months. documented in this encounter [facility] 04-28-2022 Instruction s Viridiana Jesus RN - 04/28/2022 9:52 AM EST NEXPLANON PATIENT EDUCATION You may remove dressing in 24 hours. Expect some bruising around insertion site. You may take over the counter pain medication (i.e. Tylenol, motrin, advil, etc) if you have discomfort. Call your provider with excessive bruising or pain. Continue to use condoms for STD prevention. You should use backup contraception for 7 days to prevent . documented in this encounter [facility] 04-28-2022 History of Present illness Narrative Formatting of this note might be differe nt from the original. Diallo is a 17 year old patient who presents for Nexplanon insertion. Patient's last menstrual period was 09/07/2021. VITALS: LMP 09/07/2021 test: negative Nexplanon lot #: [id number] Exp date: 12/23/23 [facility] [id number] UNIVERSAL PROTOCOL / SAFETY CHECKLIST Procedure to be Performed: Nexplanon insertion Sign In: A Moment of CARE was completed. Personnel directly involved with the procedure wore the appropriate PPE (Personal Protective Equipment). Patient/Surrogate Stated/Verified: PATIENT VERIFIED(optional for EMERGENT procedures): Patient name, Date of , Relevant allergies, and The intended procedure Time Out Communication: Intended patient and procedure match the source documents. Consent documented and matches the intended procedure. Sign Out: SIGN OUT (optional for EMERGENT procedures): No specimen collected. No instruments, equipment or retained foreign bodies applicable. Post-procedure follow-up management communicated and Plan of Care Visit completed when applicable. TECHNIQUE: Patient placed in supine position with left) bent at the elbow and placed over the head. Skin cleansed with betadine. 2 mL of Marcaine w/ epi injected subQ along insertion site. Nexplanon suzette inserted under sterile technique. After insertion by the provider, the suzette was palpable under the skin by both patient and provider. Steristrips and sterile pressure dressing applied. A&P: Nexplanon inserted without complications. Patient user card was filled out and given to the patient. The patient was instructed to remove the dressing after 24 hours. Advised to use backup contraception for 7 days. Santa Hernandez APRN.CNP documented in this encounter [facility] 04-21-2022 History of Present illness Narrative Formatting of this note is different fro m the original. CONTRACEPTION Diallo Sherman is a 17 year old who presents today for contraception. Patient's last menstrual period was 09/07/2021.. HPI: Heavy menses Yes Irregular menses Yes SUBJECTIVE Sexually active: No Smoking No Last PAP Method of control: none Methods tried previously: none Patient currently interested in: Nexplanon Interested in in the next 3 years? No Relevant Past Medical History: No relevant past medical history OB History T0 L0 SAB0 IAB0 Ectopic0 Multiple0 Live Births0 PAST MEDICAL HISTORY Diagnosis Date Borderline personality disorder (HCC) Generalized anxiety disorder PTSD (post-traumatic stress disorder) PAST SURGICAL HISTORY Procedure Laterality Date NONE FAMILY HISTORY Adopted: Yes SOCIAL HISTORY Social History Tobacco Use Smoking status: Never Passive exposure: Never Smokeless tobacco: Never Vaping Use Vaping Use: Never used Substance Use Topics Alcohol use: Never Drug use: Never PAST SURGICAL HISTORY Procedure Laterality Date NONE Current Outpatient Medications Medication Sig sertraline (ZOLOFT) 25 mg tablet Take 25 mg by mouth once daily. Take with 50mg to make 75mg sertraline (ZOLOFT) 50 mg tablet Take 50 mg by mouth once daily. Take with 25mg to make 75mg. No current facility-administered medications for this visit. Allergies As of Date: 04/21/2022 (No Known Allergies) Fully Assessed 04/21/2022 OBJECTIVE: General Appearance: Well appearing, alert, in no acute distress, well-hydrated, well nourished. Skin: Color normal Lungs: Normal inspiratory effort ASSESSMENT/PLAN: 1. Encounter for other contraceptive management - ICD9: V25.8, ICD10: Z30.8 - pt to schedule for insertion - NEXPLANON INSERTION Santa Hernandez APRN.CNP .I spent a total of 30 minutes on the date of the service which included preparing to see the patient, [id number] patient care, completing clinical documentation, obtaining and/or reviewing separately obtained history, counseling and educating the patient/family/caregiver, and ordering medications, tests, or procedures. documented in this encounter [facility] 12-22-2020 Note Patient Education Instructions Name: DIALLO SHERMAN Current Date: 12/22/2020 00:26:48 [facility]: [id number] The following sheet(s) are the Patient Education Leaflets for RICHARDCHARLYNEPTALI DIALLO [facility] Cough, Adult Coughing is a reflex that clears your throat and your airways (respiratory system). Coughing helps to heal and protect your lungs. It is normal to cough occasionally, but a cough that happens with other symptoms or lasts a long time may be a sign of a condition that needs treatment. An acute cough may only last 2?3 weeks, while a chronic cough may last 8 or more weeks. Coughing is commonly caused by: ? Infection of the respiratory systemby viruses or bacteria. ? Breathing in substances that irritate your lungs. ? Allergies. ? Asthma. ? Mucus that runs down the back of your throat (postnasal drip). ? Smoking. ? Acid backing up from the stomach into the esophagus (gastroesophageal reflux). ? Certain medicines. ? Chronic lung problems. ? Other medical conditions such as heart failure or a blood clot in the lung (pulmonary embolism). Follow these instructions at home: Medicines ? Take [id number] and prescription medicines only as told by your health care provider. ? Talk with your health care provider before you take a cough suppressant medicine. Lifestyle ? Avoid cigarette smoke. Do not use any products that contain nicotine or tobacco, such as cigarettes, e-cigarettes, and chewing tobacco. If you need help quitting, ask your health care provider. ? Drink enough fluid to keep your urine pale yellow. ? Avoid caffeine. ? Do not drink alcohol if your health care provider tells you not to drink. General instructions ? Pay close attention to changes in your cough. Tell your health care provider about them. ? Always cover your mouth when you cough. ? Avoid things that make you cough, such as perfume, candles, cleaning products, or campfire or tobacco smoke. ? If the air is dry, use a cool mist vaporizer or humidifier in your bedroom or your home to help loosen secretions. ? If your cough is worse at night, try to sleep in a semi-upright position. ? Rest as needed. ? Keep all follow-up visits as told by your health care provider. This is important. Contact a health care provider if you: ? Have new symptoms. ? Cough up pus. ? Have a cough that does not get better after 2?3 weeks or gets worse. ? Cannot control your cough with cough suppressant medicines and you are losing sleep. ? Have pain that gets worse or pain that is not helped with medicine. ? Have a fever. ? Have unexplained weight loss. ? Have night sweats. Get help right away if: ? You cough up blood. ? You have difficulty breathing. ? Your heartbeat is very fast. These symptoms may represent a serious problem that is an emergency. Do not wait to see if the symptoms will go away. Get medical help right away. Call your local emergency services (911 in the [place] Do not drive yourself to the hospital. Summary ? Coughing is a reflex that clears your throat and your airways. It is normal to cough occasionally, but a cough that happens with other symptoms or lasts a long time may be a sign of a condition that needs treatment. ? Take iebv-kjg-xnxhbii and prescription medicines only as told by your health care provider. ? Always cover your mouth when you cough. ? Contact a health care provider if you have new symptoms or a cough that does not get better after 2?3 weeks or gets worse. This information is not intended to replace advice given to you by your health care provider. Make sure you discuss any questions you have with your health care provider. Document Revised: 03/06/2019 Document Reviewed: 03/06/2019 [employer] Patient Education ? 2020 [employer] [facility] Discharge summary Note Date/Time January 08, 2025 12:33am [facility] [address] [place] [address] HEALTH INFORMATION MANAGEMENT EMERGENCY DEPARTMENT : [id number] Signed Patient: DIALLO SHERMAN Acct:[id number] MRUN: [id number] : 2005 Sex: F Loc: ED AD M Date: 01/07/25 Room/Bed: DISC Date: History of Present Illness - General Chief Complaint: Pain Stated Complaint: SHARP PAIN IN LOWER STOMACH AND BACK Symptom onset: today HPI: pt arrives today with complaints of having left lower abd that radiates to her back, pt has hx of pcos Time Seen by Provider: 01/07/25 21:39 Source: Patient Mode of Transport: Ambulatory - History of Present Illness MD Complaint: abdominal pain Onset/Timin -: days(s) Location: Q Radiation: back Migration to: no migration Severity: mild, moderate Quality: aching, sharp Consistency: constant Improves With: nothing Worsens With: nothing Associated Symptoms: nausea. denies: vomiting, diarrhea, fever, dysuria - Related Data Allergies Allergy/AdvReac Type Severity Reaction Status Date / Time No Known Allergies Allergy Unverified 01/07/25 21:52 Review of System - Constitutional Constitutional: Present: Well developed, Well nourished, Non-toxic - Nose,Throat,Mouth Nose (ROS): Absent: pain Throat: Absent: pain, swelling, discharge Mouth: Absent: pain, swelling - Respiratory Respiratory: Absent: cough, short of breath, wheezing - CV Cardiology: Absent: chest pain, edema - GI Gastrointestinal/Abdominal: Present: abdominal pain, nausea. Absent: diarrhea, vomiting - Genitourinary Symptoms: Absent: dysuria - Neuro Neurological: Absent: headache, weakness - Muskuloskeletal Musculoskeletal: Absent: back pain, joint pain, joint swelling - Integumentary Skin: Absent: lesions, rash - Allergic/Immunologic Immunological/Allergic: Present: no symptoms reported - Hematologic Hematologic/Lymphatic: Absent: easy bleeding, easy bruising, swollen glands - Endocrine Endocrine: Present: no symptoms reported - Psychiatric Psychiatric: Present: Normal Affect, Normal Mood. Absent: Depressed - All Others/Exceptions All Other Systems: Reviewed and Negative Except Where Noted in Documentation ED PMH/Social HX/Family HX - Respiratory Hx Respiratory Disorders: No - Cardiovascular Hx Cardiac Disorders: No - Neurological Hx Neurological Disorder: Yes PMH--Neurological: Migraines - Endocrine Hx Endocrine Disorders: No - Gastrointestinal Hx Gastrointestinal Disorders: No - Genitourinary Hx Genitourinary Disorders: No - Musculoskeletal Hx Musculoskeletal Disorders: No - Reproductive ?: No Last Pap Smear: pcos - Psychological Hx Psychosocial Problems: Yes PMH--Psychological & Treatments: Anxiety, Depression - HEENT Hx Ear, Nose Throat Disorders: No - Cancer Hx Cancer: No - Social History Marital Status: Single Lives with: Alone Able to Read: Yes Able to Write: Yes Smoking Status: Smoking Status Unknown Hx Chewing Tobacco Use: No Alcohol Use: Occasionally Any recreational drug use reported?: No Feels Threatened In Home Environment: No Feels Threatened In a Relationship: No - [place]/Gender ID What is your current Gender Identity? Choose all that Apply: Female General Exam - General Limitations: Complains of: no limitations Constitutional: Present: no symptoms reported - Head Head exam: Present: atraumatic, normocephalic, normal inspection - Eye Eye exam: Present: normal apperance - ENT ENT exam: Present: normal orophraynx, mucous membranes moist - Neck Neck exam: Present: full ROM, Supple. Absent: tenderness - Respiratory Respiratory exam: Present: lungs clear and equal bilaterally. Absent: respiratory distress - Cardiovascular Cardiovascular Exam: Present: regular rate, normal rhythm - GI/Abdominal GI/Abdominal exam: Present: soft, tenderness (mild llq and left pelvic). Absent: guarding, rebound, rigid - Extremities Exam Extremities exam: Present: normal inspection, neurovascularly intact, full ROM - Back Exam Back exam: Present: normal inspection - Neurological Exam Neurological exam: Present: alert, oriented X3 - Psychiatric Psychiatric exam: Present: normal affect - Skin Skin Color: Present: Normal Skin exam: Present: warm, dry, intact - Vital Signs Vital Signs 01/07/25 01/07/25 01/07/25 21:41 21:48 21:50 Temperature 97.2 F L Pulse Rate 97 102 H Pulse Rate [ 91 Pulse Ox] Respiratory 20 Rate Blood Pressure Blood Pressure 136/79 [Left Arm] O2 Sat by Pulse 99 98 99 Oximetry(%) 01/07/25 01/07/25 01/07/25 21:53 22:00 23:06 Temperature Pulse Rate 90 90 Pulse Rate [ Pulse Ox] Respiratory 20 Rate Blood Pressure 128/75 127/83 Blood Pressure [Left Arm] O2 Sat by Pulse 97 99 Oximetry(%) Abdominal pain MDM - Lab Data Result diagrams: 01/07/25 21:50 01/07/25 21:50 Lab Results 01/07/25 01/07/25 01/07/25 Range/Units 21:50 21:50 22:10 WBC 15.9 H (3.6-10.8) K/uL RBC 4.92 (3.83-5.19) M/uL Hgb 15.6 H (11.1-13.7) g/dL Hct 45.6 (33.4-46.0) % MCV 92.7 (81.0-99.0) fL MCH 31.7 H (27.0-31.0) pg MCHC 34.2 (33.0-37.0) g/dL RDW 11.8 (11.5-14.5) % Plt Count 372 (148-402) K/uL MPV 9.5 (7.4-10.4) fL Neut % (Auto) 80.6 H (43.0-65.0) % Lymph % (Auto) 11.4 L (17.0-45.5) % Coffee % (Auto) 6.3 (5.5-11.7) % Eos % (Auto) 1.2 (0.9-2.9) % Baso % (Auto) 0.3 (0.2-1.0) % Abs Immat Gran (man) 0.03 (0.00-0.10) K/uL Absolute Neuts (auto) 12.85 H (2.20-4.80) K/uL Absolute Lymphs (auto) 1.80 (1.30-2.90) K/uL Absolute Monos (auto) 1.00 H (0.30-0.80) K/uL Absolute Eos (auto) 0.20 (0.00-0.20) K/uL Absolute Basos (auto) 0.04 (0.00-0.10) K/uL Immature Gran % 0.20 (0.00-1.00) % Sodium 141 (132-145) mmol/L Potassium 4.3 (3.3-5.1) mmol/L Chloride 106 (94-110) mmol/L Total Carbon Dioxide 26 (21-34) mmol/L Anion Gap 13.3 (8.0-16.0) mmol/L BUN 11.8 (3.2-26.9) mg/dL Creatinine 0.80 (0.51-0.95) mg/dL Est GFR (MDRD) Af Amer > 60 (>60) Est GFR (MDRD) Non-Af > 60 (>60) BUN/Creatinine Ratio 15 (6-20) Glucose 94 (65-100) mg/dL Calcium 9.2 (8.2-10.0) mg/dL Beta HCG, Quant < 1 mIU/mL Urine Color yellow (Yellow) Urine Appearance Clear (Clear) Urine pH 8 Ur Specific [place] 1.010 L (1.015-1.025) Urine Protein Negative (Negative) Urine Ketones Negative (Negative) Urine Blood Negative (Negative) Urine Nitrite Negative (Negative) Urine Bilirubin Negative (Negative) Urine Urobilinogen Normal (Normal-1.0) mg/dL Ur Leukocyte Esterase Trace A (Negative) Urine RBC 0-2 (0 - 2) /hpf Urine WBC 0-2 (0 - 6) /hpf Ur Epithelial Cells 7-15 (0 - 6) /lpf Urine Glucose Normal (Negative) Orders: Medications Discontinued Medications Ketorolac Tromethamine (Ketorolac Tromethamine 15 Mg/Ml Injection) 15 mg IVP ONE ONE Stop: 01/07/25 23:09 Last Admin: 01/07/25 23:17 Dose: 15 mg Documented by: [email or web address] Labs 01/07/25 21:50 Basic Metabolic Panel [CHM] Stat CBC w/Auto Differential [HEM] Stat HCG Quant [CHM] Stat 01/07/25 22:10 UA w/micrscopic-reflex culture [URN] Stat 01/07/25 22:41 CT ABD/PELVIS W [CT] Stat 01/07/25 23:08 Ketorolac Tromethamine [Toradol 15 mg/ml Injection] 15 mg IVP ONE ONE - Radiology Data IMPRESSIONS Abdomen/Pelvis CT 01/07/25 22:41 IMPRESSION: 1. No acute intra-abdominal or pelvic abnormality. 2. 4.0 cm left adnexal cyst. No imaging follow-up is warranted. - Medical Decision Making 19-year-old female with a history of PCOS complains of pelvic pain lower abdominal pain that has been worse for one day[place] [address]. At this time no sign of infection. She has a CTA abdomen pelvis which shows a 4 cm left ovarian cyst which is likely contributing to her pain. UA is negative. The rest of her labs are unremarkable. Patient's pain is well controlled at this time. I have no concern for an ovarian torsion at this point. She can follow up with her OBGYN as an outpatient ED Discharge Summary - Discharge Data Clinical Impression: Abdominal pain, Ovarian cyst Condition: Good Disposition: HOME / SELF CARE Referrals: BLANCA MARTINES MD [facility] Additional Instructions: Call your OBGYN to schedule follow up Time Seen by Provider: 01/07/25 21:39 Electronically Generated By:ELIGIO HOWARD MD Generated Date/Time: 01/07/252154 Electronically Signed By: <Electronically signed by ELIGIO HOWARD MD> 01/08/25 0033 Co Signed Electronically By: Co Signed Date/Time: CC: BLANCA MARTINES MD [facility] Work Phone: Evaluation note* Diagnosis Encounter for other contraceptive management- [facility] Diagnosis Insertion of implantable subdermal contraceptive- Primary documented in this encounter [facility]* Diagnosis Onset Date Resolution Status Left ankle strain acute [facility] Work Phone: Evaluation note* Diagnosis Encounter for Nexplanon removal- Primary Surveillance of previously prescribed implantable subdermal contraceptive [facility] Diagnosis Encounter for gynecological examination (general) (routine) without abnormal findings- Primary Pelvic pain in female Unspecified symptom associated with female genital organs Primary dysmenorrhea Dysmenorrhea [facility] Diagnosis Abnormal uterine bleeding (AUB)- Primary Pelvic pain in female Unspecified symptom associated with female genital organs Primary dysmenorrhea Dysmenorrhea documented in this encounter [facility] note* Diagnosis Nexplanon removal- Primary Surveillance of previously prescribed implantable subdermal contraceptive documented in this encounter [facility] note* Diagnosis Burning with urination- Primary Dysuria documented in this encounter [facility] note* Diagnosis URI, acute- Primary Acute upper respiratory infections of unspecified site Sore throat Acute pharyngitis documented in this encounter [facility] note* Diagnosis PCOS (polycystic ovarian syndrome)- Primary Polycystic ovaries Hirsutism Screening for STD (sexually transmitted disease) Screening examination for venereal disease Pelvic pain in female Unspecified symptom associated with female genital organs [facility] [facility] note* Diagnosis Irregular menstrual cycle- Primary Screening for STD (sexually transmitted disease) Screening examination for venereal disease documented in this encounter [facility] noteNo assessment information availableCoUniversity [facility]als [facility] theAudience Work Phone: Hospital Discharge instructionsAdditional Instructions Call your OBGYN to schedule follow upCoUniversity [facility] theAudience Work Phone: Reason for referral (narrative)* Outpatient Procedure (Routine) - Authorized Specialty Diagnoses / Procedures Referred By William egan Referred To Contact [facility] Diagnoses Encounter for other contraceptive management Procedures NEXPLANON INSERTION ETONOGESTREL IMPLANT SYSTEM INSERT DRUG IMPLANT DEVICE Santa Hernandez APRN.CNP [address] [place] [address] [place] [address] Referral ID Status Reason Start Date Expiration Date Visits Requested Visits Authorized [id number] Authorized Auto-Generat ed Referral 04/21/2022 04/21/2023 1 [facility] Outpatient Procedure (Routine) - Pending Review Specialty Diagnoses / Procedures Referred By William egan Referred To Contact [facility] Diagnoses Insertion of implantable subdermal contraceptive Procedures NEXPLANON INSERTION ETONOGESTREL IMPLANT SYSTEM INSERT DRUG IMPLANT DEVICE Santa Hernandez APRN.CNP [address] [place] [address] [facility] [address] [place] [address] Referral ID Status Reason Start Date Expiration Date Visits Requested Visits Authorized [id number] Pending Review Auto-Generat ed Referral 04/28/2022 04/28/2023 1 1 [facility] for referral (narrative)* Diagnostic Procedure Only (Routine) - Authorized Specialty Diagnoses / Procedures Referred By Contac t Referred To Contact [facility] Diagnoses Pelvic pain in female Primary dysmenorrhea Procedures PELVIC US WHI US PELVIC NONOBSTETRIC REAL-TIME IMAGE COMPLETE Kaci Leiva MD [address] [place] [address] [facility] [address] [place] [address] Referral ID Status Reason Start Date Expiration Date Visits Requested Visits Authorized [id number] Authorized Auto-Generat ed Referral 05/21/2023 05/20/2024 1 1 T [facility] for referral (narrative)* Outpatient Procedure (Routine) - Closed Specialty Diagnoses / Procedures Referred By Taniaac t Referred To Contact [facility] Diagnoses Nexplanon removal Encounter for initial prescription of implantable subdermal contraceptive Procedures NEXPLANON REMOVAL REMOVAL NON-BIODEGRADABLE DRUG DELIVERY IMPLANT INSERT DRUG IMPLANT DEVICE ETONOGESTREL IMPLANT SYSTEM Santa Hernandez APRN.CNP [address] [place] [address] [facility] [address] [place] [address] Referral ID Status Reason Start Date Expiration Date V isits Requested Visits Authorized [id number] Closed Auto-Generate d Referral 12/29/2022 02/28/2023 2 2 [facility] ([facility])No reason for referral information availableCoPremier Health Work Phone: Summary Purpose Family History No Family History Records FoundNo Family History Records FoundNo Family History Records FoundNo Family History Records FoundNo Family History Records FoundNo Family History Records Found Advance Directives No Advanced Directives Records FoundNo Advanced Directives Records FoundNo Advanced Directives Records FoundNo Advanced Directives Records FoundNo Advanced Directives Records FoundNo Advanced Directives Records Found Medications Administered Section Inactive Administered Medications - up to 3 most recent administrations Medication Order MAR Action Action Date Dose Rate Site etonogestrel subdermal implant 68 mg (NEXPLANON) 68 mg, SUBDERMAL, ONCE (UP TO 30 DAYS AMB), 1 dose, On Wed04/28/22 at 1030, Hazardous Potential Reproductive Risk Drug: Use appropriate PPE. Must be inserted subdermally in the upper arm by a trained healthcare provider. Given 04/28/2022 10:21 AM EST 68 mg Arm, Left Chief Complaint and Reason for Visit Chief Complaint LT ANKLE INJURY left ankle strain Reason for Visit Left ankle strain Chief Complaint Admit Date SHARP PAIN IN LOWER STOMACH AND BACK Nov 2024 9:35pm Additional Source Comments INFORMATION SOURCE (unrecogn ized section and content) DATE CREATED AUTHOR 03/15/2021 [facility] DATE CREATED AUTHOR AUTHOR'S ORGANIZ ATION 09/08/2021 [facility] DATE CREATED AUTHOR AUTHOR'S ORGANIZ ATION 11/30/2021 [facility] DATE CREATED AUTHOR AUTHOR'S ORGANIZ ATION 09/17/2024 [facility] DATE CREATED AUTHOR AUTHOR'S ORGANIZ ATION 12/09/2024 [facility] DATE CREATED AUTHOR AUTHOR'S ORGANIZ ATION 01/08/2025 [facility] Source Comments (unrecognize d section and content) In the event this informatio n is protected by the Federal Confidentiality of Alcohol and Drug Abuse Patient Records regulations: The Federal rules restrict any use of the information to criminally investigate or prosecute any alcohol or drug abuse patient.[facility] Hospital[facility] the event this information is protected by the Federal Confidentiality of Alcohol and Drug Abuse Patient Records regulations: The Federal rules restrict any use of the information to criminally investigate or prosecute any alcohol or drug abuse patient.[facility] HospitalIn the event this information is protected by the Federal Confidentiality of Alcohol and Drug Abuse Patient Records regulations: The Federal rules restrict any use of the information to criminally investigate or prosecute any alcohol or drug abuse patient.[facility] HospitalIn the event this information is protected by the Federal Confidentiality of Alcohol and Drug Abuse Patient Records regulations: The Federal rules restrict any use of the information to criminally investigate or prosecute any alcohol or drug abuse patient.[facility] HospitalIn the event this information is protected by the Federal Confidentiality of Alcohol and Drug Abuse Patient Records regulations: The Federal rules restrict any use of the information to criminally investigate or prosecute any alcohol or drug abuse patient.[facility] HospitalIn the event this information is protected by the Federal Confidentiality of Alcohol and Drug Abuse Patient Records regulations: The Federal rules restrict any use of the information to criminally investigate or prosecute any alcohol or drug abuse patient.[facility] HospitalIn the event this information is protected by the Federal Confidentiality of Alcohol and Drug Abuse Patient Records regulations: The Federal rules restrict any use of the information to criminally investigate or prosecute any alcohol or drug abuse patient.[facility] HospitalIn the event this information is protected by the Federal Confidentiality of Alcohol and Drug Abuse Patient Records regulations: The Federal rules restrict any use of the information to criminally investigate or prosecute any alcohol or drug abuse patient.[facility] HospitalIn the event this information is protected by the Federal Confidentiality of Alcohol and Drug Abuse Patient Records regulations: The Federal rules restrict any use of the information to criminally investigate or prosecute any alcohol or drug abuse patient.[facility] HospitalIn the event this information is protected by the Federal Confidentiality of Alcohol and Drug Abuse Patient Records regulations: The Federal rules restrict any use of the information to criminally investigate or prosecute any alcohol or drug abuse patient.[facility] HospitalIn the event this information is protected by the Federal Confidentiality of Alcohol and Drug Abuse Patient Records regulations: The Federal rules restrict any use of the information to criminally investigate or prosecute any alcohol or drug abuse patient.[facility] HospitalIn the event this information is protected by the Federal Confidentiality of Alcohol and Drug Abuse Patient Records regulations: The Federal rules restrict any use of the information to criminally investigate or prosecute any alcohol or drug abuse patient.[facility] HospitalIn the event this information is protected by the Federal Confidentiality of Alcohol and Drug Abuse Patient Records regulations: The Federal rules restrict any use of the information to criminally investigate or prosecute any alcohol or drug abuse patient.[facility] HospitalIn the event this information is protected by the Federal Confidentiality of Alcohol and Drug Abuse Patient Records regulations: The Federal rules restrict any use of the information to criminally investigate or prosecute any alcohol or drug abuse patient.[facility] Reason for Visit (unrecogniz ed section and content) Reason Comments Discussion Reason Comments nexplanon insertion Specialty Diagnoses / Procedures Referred By Contac t Referred To Contact [facility] Diagnoses Encounter for other contraceptive management Procedures NEXPLANON INSERTION ETONOGESTREL IMPLANT SYSTEM INSERT DRUG IMPLANT DEVICE Santa Hernandez, TERRI.AUTOMOTIVE ELECTRICIAN HELPER [address] [place] [address] [address] Referral ID Status Reason Start Date Expiration Date V isits Requested Visits Authorized [id number] Closed Auto-Generate d Referral 04/21/2022 04/21/2023 1 1 Reason Comments nexplanon removal Specialty Diagnoses / Procedures Referred By Contantonette t Referred To Contact [facility] Diagnoses Nexplanon removal Encounter for initial prescription of implantable subdermal contraceptive Procedures NEXPLANON REMOVAL REMOVAL NON-BIODEGRADABLE DRUG DELIVERY IMPLANT INSERT DRUG IMPLANT DEVICE ETONOGESTREL IMPLANT SYSTEM Santa Hernandez, TERRI.AUTOMOTIVE ELECTRICIAN HELPER [address] [facility] [address] [address] Referral ID Status Reason Start Date Expiration Date Visits Requested Visits Authorized [id number] Authorized Auto-Generat ed Referral 3 02/28/2023 2 2 Reason Comments Well Woman Reason Comments FITTER / WELDER Ultrasound Specialty Diagnoses / Procedures Referred By William egan Referred To Contact [facility] Diagnoses Pelvic pain in female Primary dysmenorrhea Procedures PELVIC US WHI US PELVIC NONOBSTETRIC REAL-TIME IMAGE COMPLETE Kaci Leiva MD [address] [place] [address] [facility] [address] [place] [address] Referral ID Status Reason Start Date Expiration Date V isits Requested Visits Authorized [id number] Closed Auto-Generate d Referral 05/21/2023 05/20/2024 1 1 Reason Comments Orders Reason Comments UTI Reason Comments Results Reason Comments Nasal Congestion drainage, cough, sor e throat, fever and bodyaches x 1 day Reason Comments Yearly Exam Reason Comments AUB Reason Comments Menstrual Problem Care Teams (unrecognized sec tion and content) Log Deckman Relationship Specialty Start Date End Date Pcp, [place] [address] PCP - General 01/02/19 Team Status: Active Member Role Status Dates No Primary Care Physician Primary Care Provider Active Team Status: Inactive Member Role Status Dates RONA Henry Attending Provider Active Team Status: Inactive Member Role Status Dates RONA Henry Attending Provider, Referring Provi lizbeth Active No Primary Care Physician Primary Care Provider Active Team Status: Active Member Role/Relationship Status Dates BLANCA MARTINES MD Primary Care Provider Active Start: January 07, 2025 ELIGIO HOWARD MD Emergency Provider Active St art: January 07, 2025 BHAVESH CAMPOS Other Relationship Active DIALLO HEGENDERFER Other Participant Active Goals (unrecognized section and content) Goals may be documented in a n alternate sectionGoals may be documented in an alternate section FOR RECORDS PERTAINING TO PATIENTS WHO ARE OR HAVE BEEN ENROLLED IN A CHEMICAL DEPENDENCY/SUBSTANCEABUSE PROGRAM, SOME INFORMATION MAY BE OMITTED. This clinical summary was aggregated from multiple sources. Caution should be exercised in using it in the provision of clinical care. This summary normalizes information from multiple sources, and as a consequence, information in this document may materially change the coding, format and clinical context of patient data. In addition, data may be omitted in some cases. CLINICAL DECISIONS SHOULD BE BASED ON THE PRIMARY CLINICAL RECORDS. [facility] [employer] [facility]. provides no warranty or guarantee of the accuracy or completeness of information in this document.
[2025-01-27 23:23] LABS: Mucous, Urine 0 SEEN /hpf (<or=2+)
[2025-01-27 23:24] LABS: Color, Urine Yellow (Yellow); Glucose, Dipstick Normal (Normal); Ketone-Dipstick 5 mg/dl (Negative); Leukocyte Esterase-Dipstick 25 /ul (Negative); Nitrite-Dipstick Negative (Negative); Occult Blood-Urine 10 /ul (Negative); Protein-Dipstick 30 mg/dl (Negative); Specific Gravity, Urine 1.015 (1.002-1.030); Urine Bilirubin Dipstick Negative (Negative)
[2025-01-27] MEDS: Ketorolac 30 MG/ML Syringe IV (23:26)
[2025-01-27] MEDS: 0.9% Normal Saline (1000mL) 1,000 ML 125 ML IV (23:26)
[2025-01-27 23:33] LABS: Squamous Epithelial Cells - UA 0-5 SEEN /hpf (5-10)
[2025-01-27 23:34] LABS: Red Blood Cells-Urine 0-5 SEEN /hpf (0-5)
[2025-01-27 23:45] LABS: Internal QC Validated? YES +Cl - CLEAR BKGD; Pregnancy, Serum, hCG Quali. NEGATIVE Negative; Record Kit Lot#, Serum Preg. 980607
[2025-01-28] LABS: Hematocrit 40.7 % (37-47); Hemoglobin 14.1 g/dL (12.0-15.0); Immature Granulocytes Count 0.060 X10^3/uL (0.0-0.0); Mean Corp Hgb Conc 34.6 g/dL (32-36); Mean Corpuscular Volume 90.8 fL (81-99); Mean Platelet Vol. 9.5 fl (6.2-12.0); NRBC Flagged by Analyzer 0 % (0-5); Platelet Count 425 K/mm3 (150-450); RBC Distribution Width CV 12.4 % (11.6-14.6); RBC Distribution Width SD 40.7 fl (35.1-43.9); Red Blood Count 4.48 M/mm3 (4.2-5.4); White Blood Count 12.0 K/mm3 (4.4-11.0)
--- NOTE | 2025-01-28 | CT_ITS ---
PROCEDURE: ABDOMEN/PELVIS WITHOUT CONT 01/28/2025 REASON FOR EXAM: PAIN TECHNIQUE: Procedure Code: [id number] Modality: CT Procedure: ABDOMEN/PELVIS WITHOUT CONT Noncontrast technique limits evaluation of the abdominal and pelvic viscera. Coronal and Sagittal reconstruction series were provided. One or more dose reduction techniques were used (e.g., Automated exposure control, adjustment of the mA and/or kV according to patient size, use of iterative reconstruction technique). FINDINGS: Lack of IV and oral contrast limits evaluation. The visualized lung bases are clear. No CT evidence of a urinary stone or obstructive uropathy. Large amount of stool throughout the colon. No evidence of a bowel obstruction. No bowel wall thickening. The appendix is visualized and unremarkable. No intraperitoneal free air or free fluid. The remainder of the unenhanced and unopacified abdominal and pelvic contents appear grossly unremarkable. No acute osseous abnormality. No acute fracture. Mild levoconvex thoracolumbar scoliosis could be due to patient positioning or muscle spasm. CT/Abdomen/Pelvis without Cont IMPRESSION: Large amount of stool throughout the colon. No other acute abdominal or pelvic process is identified on this limited noncon trast study. Reading Location: [id number]
[2025-01-28 00:08] LABS: AST(SGOT) 18 U/L (<=31); Alanine Aminotransfer ALT/SGPT < 5 U/L (<=34); Albumin, Serum 4.2 g/dL (3.5-5.0); Alkaline Phosphatase 64 U/L (35-104); Anion Gap 12 (5-15); BUN 13 mg/dL (4-19); BUN/Creat Ratio 15.2 RATIO (10-20); Calcium,Total 9.0 mg/dL (7.6-11.0); Carbon Dioxide 23.3 mmol/L (21.0-32.0); Chloride 102 mmol/L (98-108); Estimated Creatinine Clearance 85.51 ml/min (50-250); Globulin 2.8 g/dL (2.2-4.2); Glucose 97 mg/dL (70-99); Lipase 42 U/L (13-75); Potassium 3.7 mmol/L (3.3-5.1)
[2025-01-28 00:51] VITALS: BP 122/79; PULSE 85; RESP 18; O2SAT 99
[2025-01-28 01:13] VITALS: BP 122/79; PULSE 85; RESP 18; TEMP 36.6; O2SAT 99
== END 2025-01-28 01:13 | disposition home or self-care (01) ==
PROVIDERS: Emergency Provider Emergency Medicine; Visit Provider Emergency Medicine
DX: K59.00 Constipation, unspecified (principal); R10.9 Unspecified abdominal pain; E28.2 Polycystic ovarian syndrome
CPT/HCPCS: 74176; 80053; 81001; 83605; 83690; 84703; 85025; 96361; 96374; 99282; A4216